=== PATIENT | female | born 1990 | race American Indian/Alaskan Native ===

== ENCOUNTER 2018-10-03 14:41 | Emergency (ER) | payer SELFPAY ==
--- NOTE | 2018-10-03 14:48 | Event Note ---
ED Screening Note Date of service: 10/03/18 Time: 14:46 ED Screening Note: This is a 28 y.o. F. 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 Pain worse with deep breaths. Denies drug use, n/v, or palpitations. This initial assessment/diagnostic orders/clinical plan/treatment(s) is/are subject to change based on patients health status, clinical progression and re- assessment by fellow clinical providers in the ED. Further treatment and workup at subsequent clinical providers discretion. Patient/guardian urged not to elope from the ED as their condition may be serious if not clinically assessed and managed. Initial orders include: EKG and CXR
[2018-10-03 14:49] VITALS: BP 130/79
[2018-10-03] MEDS ORDERED: MOTRIN PO ONE (15:51)
--- NOTE | 2018-10-03 15:52 | Emergency Department Report ---
ED Chest Pain HPI - General Chief Complaint: Chest Pain Stated Complaint: CHEST PAIN Time Seen by Provider: 10/03/18 14:46 Source: patient, EMS Mode of arrival: Ambulatory Limitations: No Limitations - History of Present Illness Initial Comments: Estrellita is a 28 yo female without significant past medical history who presents with chest pain left side radiating to her left shoulder. No shortness of breath. Pain is sharp worse with inspiration. No use of oral contraceptives. No recent travel. Denies leg pain. No history of the VTE in the family. 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 Complaint: chest pain -: Gradual, This morning Onset: during rest Pain Location: left chest Severity: severe Quality: sharp Consistency: constant Worsens With: inspiration - Related Data Previous Rx's Medication Instructions Recorded Last Taken Type Benzocaine/Mentho [Cepacol X 1 each MM Q2H PRN #3 packet 07/17/18 Unknown Rx Strength] Ibuprofen [Ibuprofen 800] 800 mg PO TID PRN #30 tablet 07/17/18 Unknown Rx Allergies Allergy/AdvReac Type Severity Reaction Status Date / Time No Known Allergies Allergy Unverified 07/28/15 06:22 Heart Score - HEART Score History: Slightly suspicious EKG: Normal Age: < 45 Risk factors: 1-2 risk factors Troponin: < normal limit HEART Score: 1 - Critical Actions Critical Actions: 0-3 pts:0.9-1.7%risk of adverse cardiac event.Candidate for discharge ED Review of Systems ROS: Stated complaint: CHEST PAIN Other details as noted in HPI Comment: All other systems reviewed and negative Constitutional: denies: fever, malaise Respiratory: shortness of breath. denies: cough Cardiovascular: chest pain, palpitations ED Past Medical Hx - Past Medical History Previous Medical History?: Yes Hx Hypertension: No Hx Congestive Heart Failure: No Hx Diabetes: No Hx Deep Vein Thrombosis: No Hx Renal Disease: No Hx Sickle Cell Disease: No Hx Seizures: No Hx Asthma: No Hx COPD: No Hx HIV: No - Social History Smoking Status: Never Smoker Substance Use Type: None - Medications Home Medications: Home Medications Medication Instructions Recorded Confirmed Last Taken Type Benzocaine/Mentho [Cepacol X 1 each MM Q2H PRN #3 packet 07/17/18 Unknown Rx Strength] Ibuprofen [Ibuprofen 800] 800 mg PO TID PRN #30 tablet 07/17/18 Unknown Rx ED Physical Exam - General Limitations: No Limitations General appearance: alert, in no apparent distress - Head Head exam: Present: atraumatic, normocephalic - Eye Eye exam: Present: normal appearance - ENT ENT exam: Present: mucous membranes moist - Neck Neck exam: Present: normal inspection, full ROM - Respiratory Respiratory exam: Present: normal lung sounds bilaterally. Absent: respiratory distress, wheezes, rales, rhonchi - Cardiovascular Cardiovascular Exam: Present: regular rate, normal rhythm, normal heart sounds. Absent: systolic murmur, diastolic murmur, rubs, gallop - GI/Abdominal GI/Abdominal exam: Present: soft, normal bowel sounds. Absent: distended, tenderness, guarding, rebound - Extremities Exam Extremities exam: Present: normal inspection - Back Exam Back exam: Present: normal inspection - Neurological Exam Neurological exam: Present: alert, oriented X3 - Psychiatric Psychiatric exam: Present: normal affect, normal mood - Skin Skin exam: Present: warm, dry, intact, normal color. Absent: rash ED Course Vital Signs 10/03/18 14:47 Temperature 98.7 F Pulse Rate 99 H Respiratory 17 Rate Blood Pressure 130/79 O2 Sat by Pulse 98 Oximetry ED Medical Decision Making - EKG Data EKG shows normal: sinus rhythm, axis, intervals, QRS complexes, ST-T waves Rate: normal - Radiology Data Radiology results: report reviewed, image reviewed interpreted by me: Chest x-ray PA and lateral no acute process - Medical Decision Making Estrellita is a healthy 28-year-old female who presents with chest pain pleuritic in nature. PERC Negative for PE. No risk factors for pulmonary embolism. No indication of pneumothorax or pneumonia. Given reassurance and return precautions. Recommended [id number] ibuprofen for possible musculoskeletal pain. Critical care attestation.: If time is entered above; I have spent that time in minutes in the direct care of this critically ill patient, excluding procedure time. ED Disposition Clinical Impression: Chest pain Disposition: -01 TO HOME OR SELFCARE Is pt being admited?: No Does the pt Need Aspirin: No Condition: Stable Instructions: Chest Pain (ED) Referrals: CHI HOLLEY MD [Primary Care Provider] - 3-5 Days
--- NOTE | 2018-10-03 16:18 | XRay Report ---
CHEST 2 VIEWS INDICATION / CLINICAL INFORMATION: Chest Pain. COMPARISON: None available. FINDINGS: SUPPORT DEVICES: None. HEART / MEDIASTINUM: The heart size and pulmonary vasculature are normal. The aorta is normal in linda alireza. LUNGS / PLEURA: No significant pulmonary or pleural abnormality. No pneumothorax. ADDITIONAL FINDINGS: No significant additional findings. IMPRESSION: No acute findings. Signer Name: Nicola Hager MD Signed: 10/03/2018 4:14 PM Workstation Name: [id number]
== END 2018-10-03 16:35 | disposition home or self-care (01) ==
LOC: ED 14:41
DX: R07.89 Other chest pain (principal)
CPT/HCPCS: 71046; 93005; 93010

== ENCOUNTER 2019-01-31 11:15 | Emergency (ER) | payer MEDICAID, OTHER ==
[2019-01-31 11:20] VITALS: BP 118/78
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
[2019-01-31 13:54] LABS: Bilirubin,Urine NEG (Negative); Blood,Urine NEG (Negative); Color,Urine Yellow (Yellow); Mucus,Urine 1+ /HPF; Protein,Urine <15 mg/dL mg/dL (Negative)
[2019-01-31 13:55] LABS: HCG Qualitative,Urine Negative (Negative)
== END 2019-01-31 14:37 | disposition left against medical advice (07) ==
LOC: ED 11:15
DX: R10.30 Lower abdominal pain, unspecified (principal); V47.5XXA Car driver injured in collision with fixed or stationary object in traffic accident, initial encounter; Y93.89 Activity, other specified; Y92.410 Unspecified street and highway as the place of occurrence of the external cause; Y99.8 Other external cause status
CPT/HCPCS: 81001; 81025

== ENCOUNTER 2019-05-02 21:11 | Emergency (ER) | payer MEDICAID ==
--- NOTE | 2019-05-02 22:00 | Event Note ---
ED Screening Note ED Screening Note: pt presents for upper abd pain that began a few weeks ago states that it comes every hour +nausea no vomiting or diarrhea states that she does have hemorrhoids no urinary sx PMHx none no allergies to meds LNMP: first week of apr This initial assessment/diagnostic orders/clinical plan/treatment(s) is/are subject to change based on patients health status, clinical progression and re- assessment by fellow clinical providers in the ED. Further treatment and workup at subsequent clinical providers discretion. Patient/guardian urged not to elope from the ED as their condition may be serious if not clinically assessed and managed. Initial orders include: labs, UA, urine preg
[2019-05-02 22:42] LABS: Basophils % (Auto) 0.5 % (0.0-1.8); Eosinophils # (Auto) 0.2 K/mm3 (0.0-0.4); Hematocrit 34.3 % (30.3-42.9); Hemoglobin 11.5 gm/dl (10.1-14.3); Lymphocytes # (Auto) 1.7 K/mm3 (1.2-5.4); Lymphocytes % (Auto) 21.7 % (13.4-35.0); Mean Corpuscular HGB Conc 34 % (30-34); Mean Corpuscular Volume 93 fl (79-97); Monocytes # (Auto) 0.7 K/mm3 (0.0-0.8); Monocytes % (Auto) 8.9 % (0.0-7.3); Platelet Count 353 K/mm3 (140-440); Red Blood Count 3.68 M/mm3 (3.65-5.03); Red Cell Distribution Width 13.9 % (13.2-15.2)
[2019-05-02 22:58] LABS: Alanine Aminotransferase 10 units/L (7-56); Albumin 4.1 g/dL (3.9-5); BUN/Creatinine Ratio 16; Blood Urea Nitrogen 11 mg/dL (7-17); Hemolysis Index 1
[2019-05-03 00:13] LABS: Bilirubin,Urine NEG (Negative); Blood,Urine NEG (Negative); Color,Urine Yellow (Yellow); Mucus,Urine 3+ /HPF; Protein,Urine <15 mg/dL mg/dL (Negative)
[2019-05-03 00:15] LABS: HCG Qualitative,Urine Negative (Negative)
[2019-05-03] MEDS ORDERED: SUCRALFATE 1 GM/10 ML ORAL LIQD PO ONE (00:30)
[2019-05-03] MEDS ORDERED: ACETAMINOPHEN 325 MG/10.15 ML ORAL LIQD UNIT DOSE PO ONE (00:30)
--- NOTE | 2019-05-03 00:31 | Emergency Department Report ---
ED Abdominal Pain HPI - General Chief Complaint: Abdominal Pain Stated Complaint: GASTRO PROBLEMS/STOMACH PAIN Time Seen by Provider: 05/02/19 21:57 Source: patient, RN notes reviewed Mode of arrival: Ambulatory Limitations: No Limitations - History of Present Illness Initial Comments: During the history and physical examination, I am parts manager and escorted by bus girl Caitlin Kyle Patient is a pleasant 29-year-old female who is not known to myself previously. She presents to the ER with a complaint of intermittent cramping abdominal pain. The pain is epigastric. It decreases when she lays on her right-hand side. It does not radiate anywhere. There is no nausea, vomiting or diarrhea. There were no irritative or obstructive urinary symptoms. Denies headache, neck pain, chest pain, exertional shortness of breath, also endorses nontraumatic paralumbar pain. She has been having this pain over the past few weeks and months. She believes that she might have IBS secondary to looking up her symptoms on the Internet. MD Complaint: abdominal pain -: Gradual Location: epigastric Radiation: other Migration to: other Quality: cramping Consistency: intermittent Improves With: other Worsens With: other - Related Data Previous Rx's Medication Instructions Recorded Last Taken Type Acetaminophen [Non-Aspirin Extra 500 mg PO Q6HR PRN #30 tablet 05/03/19 Unknown Rx Strength] Famotidine [Pepcid] 20 mg PO QDAY #30 tablet 05/03/19 Unknown Rx Allergies Allergy/AdvReac Type Severity Reaction Status Date / Time No Known Allergies Allergy Unverified 07/28/15 06:22 ED Review of Systems ROS: Stated complaint: GASTRO PROBLEMS/STOMACH PAIN Other details as noted in HPI Constitutional: denies: fever Eyes: denies: eye discharge ENT: denies: congestion Respiratory: denies: wheezing Cardiovascular: denies: syncope Gastrointestinal: abdominal pain. denies: vomiting, diarrhea, constipation, hematochezia Genitourinary: denies: dysuria Musculoskeletal: back pain Skin: as per HPI Neurological: as per HPI Psychiatric: anxiety Hematological/Lymphatic: denies: easy bleeding ED Past Medical Hx - Past Medical History Previous Medical History?: No Hx Hypertension: No Hx Congestive Heart Failure: No Hx Diabetes: No Hx Deep Vein Thrombosis: No Hx Renal Disease: No Hx Sickle Cell Disease: No Hx Seizures: No Hx Asthma: No Hx COPD: No Hx HIV: No - Surgical History Past Surgical History?: No - Social History Smoking Status: Never Smoker Substance Use Type: None - Medications Home Medications: Home Medications Medication Instructions Recorded Confirmed Last Taken Type Acetaminophen [Non-Aspirin Extra 500 mg PO Q6HR PRN #30 tablet 05/03/19 Unknown Rx Strength] Famotidine [Pepcid] 20 mg PO QDAY #30 tablet 05/03/19 Unknown Rx ED Physical Exam - General Limitations: No Limitations, Other (Chaperoned by Caitlin Kyle) General appearance: alert, in no apparent distress - Head Head exam: Present: atraumatic, normocephalic - Eye Eye exam: Present: normal appearance, EOMI. Absent: nystagmus - ENT ENT exam: Present: normal exam, normal orophraynx, mucous membranes moist, normal external ear exam - Neck Neck exam: Present: normal inspection, full ROM. Absent: tenderness, meningismus - Respiratory Respiratory exam: Present: normal lung sounds bilaterally. Absent: respiratory distress - Cardiovascular Cardiovascular Exam: Present: regular rate, normal rhythm, normal heart sounds. Absent: bradycardia, tachycardia, irregular rhythm, systolic murmur, diastolic murmur, rubs, gallop - GI/Abdominal GI/Abdominal exam: Present: soft, normal bowel sounds. Absent: distended, tenderness, guarding, rebound, rigid, pulsatile mass - Extremities Exam Extremities exam: Present: normal inspection, full ROM, other (2+ pulses noted in the bilateral upper and lower extremities. There is no palpable cord. negative Homans sign. Muscular compartments are soft. The pelvis is stable.). Absent: pedal edema, calf tenderness - Back Exam Back exam: Present: normal inspection, full ROM. Absent: tenderness, CVA tenderness (R), CVA tenderness (L), paraspinal tenderness, vertebral tenderness - Neurological Exam Neurological exam: Present: alert, normal gait, other (There is no facial droop. The tongue is midline. Extraocular movements are intact bilaterally. There is 5 out of 5 strength in bilateral upper and lower extremities. Sensation is intact to light touch bilateral upper and lower extremities. There is a normal gait.). Absent: motor sensory deficit - Psychiatric Psychiatric exam: Present: anxious - Skin Skin exam: Present: warm, dry, intact, normal color. Absent: rash ED Course Vital Signs 05/02/19 05/03/19 21:14 01:29 Temperature 98.8 F 98.1 F Pulse Rate 103 H 89 Respiratory 18 16 Rate Blood Pressure 125/92 Blood Pressure 115/82 [Right] O2 Sat by Pulse 97 100 Oximetry ED Medical Decision Making - Lab Data Result diagrams: 05/02/19 22:22 05/02/19 22:22 Vital Signs 05/02/19 05/03/19 21:14 01:29 Temperature 98.8 F 98.1 F Pulse Rate 103 H 89 Respiratory 18 16 Rate Blood Pressure 125/92 Blood Pressure 115/82 [Right] O2 Sat by Pulse 97 100 Oximetry Lab Results 05/02/19 05/02/19 05/02/19 Range/Units 22:22 22:22 Unknown WBC 7.6 (4.5-11.0) K/mm3 RBC 3.68 (3.65-5.03) M/mm3 Hgb 11.5 (10.1-14.3) gm/dl Hct 34.3 (30.3-42.9) % MCV 93 (79-97) fl MCH 31 (28-32) pg MCHC 34 (30-34) % RDW 13.9 (13.2-15.2) % Plt Count 353 (140-440) K/mm3 Lymph % (Auto) 21.7 (13.4-35.0) % Cedar % (Auto) 8.9 H (0.0-7.3) % Eos % (Auto) 2.0 (0.0-4.3) % Baso % (Auto) 0.5 (0.0-1.8) % Lymph # 1.7 (1.2-5.4) K/mm3 Cedar # 0.7 (0.0-0.8) K/mm3 Eos # 0.2 (0.0-0.4) K/mm3 Baso # 0.0 (0.0-0.1) K/mm3 Seg Neutrophils % 66.9 (40.0-70.0) % Seg Neutrophils # 5.1 (1.8-7.7) K/mm3 Sodium 138 (137-145) mmol/L Potassium 3.6 (3.6-5.0) mmol/L Chloride 100.5 (98-107) mmol/L Carbon Dioxide 24 (22-30) mmol/L Anion Gap 17 mmol/L BUN 11 (7-17) mg/dL Creatinine 0.7 (0.7-1.2) mg/dL Estimated GFR > 60 ml/min BUN/Creatinine Ratio 16 % Glucose 89 (65-100) mg/dL Calcium 9.0 (8.4-10.2) mg/dL Total Bilirubin 0.50 (0.1-1.2) mg/dL AST 14 (5-40) units/L ALT 10 (7-56) units/L Alkaline Phosphatase 91 (35-129) units/L Total Protein 8.0 (6.3-8.2) g/dL Albumin 4.1 (3.9-5) g/dL Albumin/Globulin Ratio 1.1 % Urine Color Yellow (Yellow) Urine Turbidity Clear (Clear) Urine pH 5.0 (5.0-7.0) Ur Specific [place] 1.030 (1.003-1.030) Urine Protein <15 mg/dl (Negative) mg/dL Urine Glucose (UA) Neg (Negative) mg/dL Urine Ketones Neg (Negative) mg/dL Urine Blood Neg (Negative) Urine Nitrite Neg (Negative) Urine Bilirubin Neg (Negative) Urine Urobilinogen 2.0 (<2.0) mg/dL Ur Leukocyte Esterase Neg (Negative) Urine WBC (Auto) 1.0 (0.0-6.0) /HPF Urine RBC (Auto) 2.0 (0.0-6.0) /HPF U Epithel Cells (Auto) < 1.0 (0-13.0) /HPF Urine Mucus 3+ /HPF Urine HCG, Qual Negative (Negative) - EKG Data -: EKG Interpreted by Pr EKG shows normal: sinus rhythm Rate: normal - EKG Data When compared to previous EKG there are: previous EKG unavailable Interpretation: normal EKG 05/03/19 01:48 There is no prior EKG available for comparison. Sinus rhythm at, tachycardia, high left ventricular voltage, incomplete right bundle branch block, question juvenile T wave inversion V3, no endorsement of chest pain, the EKG is abnormal, it is not consistent with ST elevation myocardial infarction. - Medical Decision Making Differential diagnosis, including but not limited to: GERD, gastritis, hiatal hernia, constipation, functional abdominal pain, IBS Assessment and plan: 29-year-old female with weeks and months of intermittent crampy abdominal pain. She is afebrile with reassuring vital signs. Her abdominal exam is benign, without rebound, guarding or peritoneal signs. Her tachycardia has resolved, she is tolerating liquid feeds without difficulty, her screening laboratory studies have not indicated any emergent condition at this time, and she appears to be quite engaged on her cellular phone, and she is not in any acute distress. This patient does not appear to have an emergent medical condition at this time. She can be started on as needed Tylenol, famotidine, we will discussed diet lifestyle modifications, she can follow-up with an outpatient primary care doctor and/or line painting machine operator. Return precautions are reviewed. There is no abdominal tenderness, nausea or vomiting, therefore, pancreatitis is very unlikely. Critical care attestation.: If time is entered above; I have spent that time in minutes in the direct care of this critically ill patient, excluding procedure time. ED Disposition Clinical Impression: Abdominal pain Disposition: DC-01 TO HOME OR SELFCARE Is pt being admited?: No Does the pt Need Aspirin: No Condition: Stable Additional Instructions: Avoid consumption of Motrin, ibuprofen, Naprosyn, Aleve, alcohol, heavy and/or spicy foods. Avoid consumption and secondhand exposure to smoke products, including marijuana, and tobacco. Take the pain medications as needed and/or directed, make certain to eat plenty of fiber, vegetables, lean protein, and drink at least 6 cups of water per 24 hours. Follow-up with the primary care doctor or line painting machine operator for abdominal pain within the next 2 to 4 weeks. Follow-up with an outpatient digging machine operator for reproductive health needs and health maintenance within the next 6 to 8 weeks. Return to the emergency room right away with new, worsened or different symptoms, or symptoms not present on the initial emergency room evaluation. Referrals: [facility] [Provider Group] - as needed [facility] [Provider Group] - as needed [facility] [Provider Group] - as needed [facility] [Provider Group] - as needed [facility] [Provider Group[facility] - as needed [facility] [Provider Group] - as needed
[2019-05-03 01:30] VITALS: BP 115/82
== END 2019-05-03 02:11 | disposition home or self-care (01) ==
LOC: ED 21:11
DX: R10.13 Epigastric pain (principal); Z79.899 Other long term (current) drug therapy
CPT/HCPCS: 36415; 80053; 81001; 81025; 85025; 93005; 93010

== ENCOUNTER 2019-06-16 19:00 | Emergency (ER) | payer MEDICAID ==
[2019-06-16 20:07] LABS: Basophils % (Auto) 0.2 % (0.0-1.8); Eosinophils # (Auto) 0.3 K/mm3 (0.0-0.4); Eosinophils % (Auto) 2.4 % (0.0-4.3); Hematocrit 31.5 % (30.3-42.9); Hemoglobin 10.3 gm/dl (10.1-14.3); Lymphocytes # (Auto) 1.2 K/mm3 (1.2-5.4); Lymphocytes % (Auto) 11.9 % (13.4-35.0); Mean Corpuscular HGB Conc 33 % (30-34); Mean Corpuscular Volume 95 fl (79-97); Monocytes % (Auto) 9.7 % (0.0-7.3); Platelet Count 469 K/mm3 (140-440); Red Blood Count 3.32 M/mm3 (3.65-5.03); Red Cell Distribution Width 15.2 % (13.2-15.2)
[2019-06-16 20:25] LABS: Alanine Aminotransferase 7 units/L (7-56); Albumin 3.9 g/dL (3.9-5); BUN/Creatinine Ratio 11; Blood Urea Nitrogen 8 mg/dL (7-17); Calcium 8.9 mg/dL (8.4-10.2); Hemolysis Index 3
[2019-06-16 21:12] VITALS: BP 118/78
--- NOTE | 2019-06-16 21:13 | Emergency Department Report ---
HPI - General Chief Complaint: GI Bleed Time Seen by Provider: 06/16/19 20:44 - HPI HPI: 29-year-old -Malaysian female presents to the emergency department with complaint of a 3-day history of rectal bleeding with bright red blood. Overall she says that this has been going on for the past year, but sometimes it will go away for extended periods of time. The patient also complains of some intermittent mid abdominal pains. She denies any fever, diarrhea, constipation, dysuria, vaginal bleeding, vaginal discharge. She has seen a textile technical officer through [facility] about 1 year ago and was just told that it was due to hemorrhoids. Otherwise no past medical history. No recent travel or sick contacts at home. ED Past Medical Hx - Past Medical History Hx Hypertension: No Hx Congestive Heart Failure: No Hx Diabetes: No Hx Deep Vein Thrombosis: No Hx Renal Disease: No Hx Sickle Cell Disease: No Hx Seizures: No Hx Asthma: No Hx COPD: No Hx HIV: No - Surgical History Past Surgical History?: No - Social History Smoking Status: Never Smoker Substance Use Type: None - Medications Home Medications: Home Medications Medication Instructions Recorded Confirmed Last Taken Type Acetaminophen [Non-Aspirin Extra 500 mg PO Q6HR PRN #30 tablet 05/03/19 Unknown Rx Strength] Famotidine [Pepcid] 20 mg PO QDAY #30 tablet 05/03/19 Unknown Rx Hydrocortisone [Anusol-Hc 2.5% TOP 1 applicatio RC BID #1 tube 06/16/19 Unknown Rx CREAM] ED Review of Systems ROS: Stated complaint: GI BLEED Other details as noted in HPI Comment: All other systems reviewed and negative Constitutional: denies: chills, fever Eyes: denies: eye pain, vision change ENT: denies: ear pain, throat pain Respiratory: denies: cough, shortness of breath Cardiovascular: denies: chest pain, palpitations Gastrointestinal: abdominal pain, hematochezia. denies: nausea, vomiting Genitourinary: denies: dysuria, discharge Musculoskeletal: denies: back pain, arthralgia Skin: denies: rash, lesions Neurological: denies: headache, weakness Physical Exam - Physical Exam Vital Signs: Vital Signs 06/16/19 19:05 Temperature 99.3 F Respiratory 20 Rate Blood Pressure 116/79 O2 Sat by Pulse 100 Oximetry Physical Exam: GENERAL: The patient is well-developed well-nourished. HENT: Normocephalic. Atraumatic. Patient has moist mucous membranes. EYES: Extraocular motions are intact. NECK: Supple. Trachea is midline. CHEST/LUNGS: Clear to auscultation. There is no respiratory distress noted. HEART/CARDIOVASCULAR: Regular. There is no tachycardia. ABDOMEN: Abdomen is soft. Mild epigastric and left upper quadrant abdominal tenderness to palpation. No guarding. Patient has normal bowel sounds. There is no abdominal distention. SKIN: Skin is warm and dry. NEURO: The patient is awake, alert, and oriented. The patient is cooperative. The patient has no focal neurologic deficits. Normal speech. MUSCULOSKELETAL: There is no tenderness or deformity. There is no evidence of acute injury. RECTAL: There is a moderate sized nonthrombosed external hemorrhoid at the 6 o'clock position. No gross blood. ED Course Vital Signs 06/16/19 19:05 Temperature 99.3 F Respiratory 20 Rate Blood Pressure 116/79 O2 Sat by Pulse 100 Oximetry ED Medical Decision Making - Lab Data Result diagrams: 06/16/19 19:31 06/16/19 19:31 - Radiology Data Radiology results: report reviewed, image reviewed interpreted by me: Abdominal x-ray shows nonspecific nonobstructive bowel gas ULTRASOUND ABDOMEN, LIMITED (RIGHT UPPER QUADRANT) INDICATION: Abd pain. COMPAR LIEN: None available. FINDINGS: PANCREAS: Visualized portion shows no significant abnormality. LIVER: 18.6 cm in length with a normal echo pattern compared to the right renal cortex. No focal lesion and normal directional blood flow in the main portal vein. GALLBLADDER: Mildly contracted without wall thickening or gallstones. BILE DUCTS: No significant abnormality. Common bile duct measures 1 mm. FREE FLUID: None. ADDITIONAL FINDINGS: None. IMPRESSION: No significant sonographic abnormality of the right upper quadrant. - Medical Decision Making Rectal examination was done with MAGGY Duran at bedside as a bilingual operator This patient presents to the emergency department with a complaint of a 3-day history of some rectal bleeding with bright red blood. Overall the patient says that this is been going on for the past year. She has seen a textile technical officer in the past but never had a colonoscopy and has been told it is due to hemorrhoids. A rectal examination was done that does show a nonthrombosed external hemorrhoid at the 6 o'clock position. No gross blood visualized. Patient's labs are mostly unremarkable. Hemoglobin was at 10.3. Normal metabolic panel, urinalysis, and the patient is not . She also has complaints of intermittent abdominal pain. Abdomen is soft, nondistended and nontoxic in appearance. Abdominal x-ray shows nonspecific nonobstructive bowel gas. Ultrasound of the upper abdomen did not show any acute process. The patient appears safe for discharge home at this time. She will be given a referral for [place] [facility] and has been placed on Anusol for the external hemorrhoid. The patient will return to the emergency department with any worsening of her symptoms or any acute distress. Critical Care Time: No Critical care attestation.: If time is entered above; I have spent that time in minutes in the direct care of this critically ill patient, excluding procedure time. ED Disposition Clinical Impression: Rectal bleeding, External hemorrhoid, Intermittent abdominal pain Disposition: TO HOME OR SELFCARE Is pt being admited?: No Condition: Stable Instructions: Hemorrhoids (ED), Rectal Bleeding (ED), Abdominal Pain (ED) Additional Instructions: Please follow-up with your primary care physician in the next few days. I am giving you a referral for a local gastroenterology group to follow-up regarding the rectal bleeding and hemorrhoids, and your intermittent abdominal pains. Return to the emergency department with any worsening of your symptoms or any a cute distress. Prescriptions: Hydrocortisone [Anusol-Hc 2.5% TOP CREAM] 1 applicatio RC BID #1 tube Referrals: [facility] [Provider Group] - 3-5 Days Forms: Accompanied Note Time of Disposition: 23:43
--- NOTE | 2019-06-16 22:25 | Ultrasound Report ---
ULTRASOUND ABDOMEN, LIMITED (RIGHT UPPER QUADRANT) INDICATION: Abd pain. COMPARISON: None available. FINDINGS: PANCREAS: Visualized portion shows no significant abnormality. LIVER: 18.6 cm in length with a normal echo pattern compared to the right renal cortex. No focal lesi on and normal directional blood flow in the main portal vein. GALLBLADDER: Mildly contracted without wall thickening or gallstones. BILE DUCTS: No significant abnormality. Common bile duct measures 1 mm. FREE FLUID: None. ADDITIONAL FINDINGS: None. IMPRESSION: No significant sonographic abnormality of the right upper quadrant. Signer Name: Nicola Hager MD Signed: 06/16/2019 10:21 PM Workstation Name: [id number]
[2019-06-16 23:10] LABS: Bacteria,Urine 1+ /HPF (Negative); Bilirubin,Urine NEG (Negative); Blood,Urine NEG (Negative); Color,Urine Amber (Yellow); Mucus,Urine 3+ /HPF
[2019-06-16 23:11] LABS: HCG Qualitative,Urine Negative (Negative)
--- NOTE | 2019-06-16 23:45 | XRay Report ---
ABDOMEN, 2 VIEWS 06/16/2019 INDICATION / CLINICAL INFORMATION: Abd pain. COMPARISON: None available. FINDINGS: Normal bowel gas pattern. No evidence of pneumoperitoneum. No calcifications project over the urinary system. Lumbar scoliosis. IMPRESSION: No acute findings. Signer Name: Cyril Méndez MD Signed: 06/16/2019 11:41 PM Workstation Name: [id number]
== END 2019-06-16 23:45 | disposition home or self-care (01) ==
LOC: ED 19:00
DX: K62.5 Hemorrhage of anus and rectum (principal); K64.4 Residual hemorrhoidal skin tags; R10.9 Unspecified abdominal pain; Z79.899 Other long term (current) drug therapy
CPT/HCPCS: 36415; 74019; 76705; 80053; 81001; 81025; 85025; 86850; 86900; 86901

== ENCOUNTER 2019-08-03 20:08 | Inpatient (IN) | payer MEDICAID ==
[2019-08-03] MEDS ORDERED: ONDANSETRON 4 MG/2 ML INJ IV ONE (20:19)
[2019-08-03] MEDS ORDERED: fentaNYL 100 MCG/2 ML INJ IV ONE ×2 (20:19→20:59)
[2019-08-03] MEDS ORDERED: methylPREDNISolone Sod Succinate 125 MG/2 ML INJ IV ONE (20:20)
[2019-08-03] MEDS ORDERED: SODIUM CHLORIDE 0.9% 1000 ML 1,000 ML IV ONE (20:21)
--- NOTE | 2019-08-03 20:26 | Emergency Department Report ---
HPI - General Chief Complaint: Abdominal Pain PUI?: No Time Seen by Provider: 08/03/19 20:16 - HPI HPI: Room 4 The patient is a 29-year-old female present with a chief complaint of abdominal pain and hematochezia. Patient has history of Crohn's disease and states this morning she developed bloody stool and diffuse abdominal pain. Patient is to nausea and vomiting. Patient denies history of fever or dysuria. Patient gives her pain a score of 10/10. Patient states the pain radiates to her back ED Past Medical Hx - Past Medical History Previous Medical History?: Yes Additional medical history: Crohn's disease, anemia - Surgical History Past Surgical History?: No - Family History Family history: no significant - Social History Smoking Status: Never Smoker Substance Use Type: None (Denies illicit drug use) - Medications Home Medications: Home Medications Medication Instructions Recorded Confirmed Last Taken Type Acetaminophen [Non-Aspirin Extra 500 mg PO Q6HR PRN #30 tablet 05/03/19 Unknown Rx Strength] Famotidine [Pepcid] 20 mg PO QDAY #30 tablet 05/03/19 Unknown Rx Hydrocortisone [Anusol-Hc 2.5% TOP 1 applicatio RC BID #1 tube 06/16/19 Unknown Rx CREAM] ED Review of Systems ROS: Stated complaint: BLODDY STOOL Other details as noted in HPI Constitutional: denies: fever Eyes: denies: eye pain ENT: denies: throat pain Respiratory: no symptoms reported Cardiovascular: denies: chest pain Endocrine: no symptoms reported Gastrointestinal: abdominal pain, nausea, vomiting, hematochezia Genitourinary: denies: dysuria Musculoskeletal: back pain Neurological: denies: headache Physical Exam - Physical Exam Physical Exam: GENERAL: The patient is well-developed well-nourished female lying on stretcher holding emesis bag appearing to be in moderate discomfort HEENT: Normocephalic. Atraumatic. Extraocular motions are intact. Patient has moist mucous membranes. NECK: Supple. Trachea midline CHEST/LUNGS: Clear to auscultation. There is no respiratory distress noted. HEART/CARDIOVASCULAR: Regular. There is no tachycardia. There is no gallop rub or murmur. ABDOMEN: Abdomen is soft, with diffuse discomfort to palpation. Patient has normal bowel sounds. There is no abdominal distention. SKIN: There is no rash. There is no edema. There is no diaphoresis. NEURO: The patient is awake, alert, and oriented. The patient is cooperative. The patient has normal speech MUSCULOSKELETAL: There is no evidence of acute injury. ED Medical Decision Making - Lab Data Result diagrams: 08/03/19 20:36 08/03/19 20:36 Laboratory Tests 08/03/19 08/03/19 08/03/19 20:36 20:36 20:36 WBC 12.1 H RBC 3.06 L Hgb 8.7 L Hct 26.7 L MCV 87 MCH 29 MCHC 33 RDW 16.9 H Plt Count 652 H Lymph % (Auto) [facility] [place] % (Auto) [facility] Eos % (Auto) [facility] Baso % (Auto) [facility] Lymph # [facility] [place] # [facility] Eos # [facility] Baso # [facility] Seg Neutrophils % [facility] Seg Neutrophils # [facility] PT 15.1 H INR 1.21 H APTT 27.5 Sodium 138 Potassium 3.0 L Chloride 98.9 Carbon Dioxide 23 Anion Gap 19 BUN 8 Creatinine 0.4 L Estimated GFR > 60 BUN/Creatinine Ratio 20 Glucose 115 H Calcium 8.0 L Total Bilirubin 0.30 AST 15 ALT 13 Alkaline Phosphatase 52 Total Protein 6.6 Albumin 2.6 L Albumin/Globulin Ratio 0.7 Lipase 532 H HCG, Qual Blood Type Antibody Screen 08/03/19 08/03/19 20:36 20:36 WBC RBC Hgb Hct MCV MCH MCHC RDW Plt Count Lymph % (Auto) [place] % (Auto) Eos % (Auto) Baso % (Auto) Lymph # [place] # Eos # Baso # Seg Neutrophils % Seg Neutrophils # PT INR APTT Sodium Potassium Chloride Carbon Dioxide Anion Gap BUN Creatinine Estimated GFR BUN/Creatinine Ratio Glucose Calcium Total Bilirubin AST ALT Alkaline Phosphatase Total Protein Albumin Albumin/Globulin Ratio Lipase HCG, Qual Negative Blood Type O POSITIVE Antibody Screen Negative - Radiology Data Radiology results: report reviewed (CT abdomen pelvis), image reviewed (CT abdomen pelvis) [facility] [address] [place] [address] Cat Scan Report Signed Patient: JARVIS CUEVAS MR#: [id number] : 1990 Acct:[id number] Age/Sex: 29 / F ADM Date: 08/03/19 Loc: ED Attending Dr: Ordering Physician: WENDI MCGILL MD Date of Service: 08/03/19 Procedure(s): CT abdomen pelvis w con Accession Number(s): [id number] cc: WENDI MCGILL MD CT ABDOMEN AND PELVIS WITH IV CONTRAST INDICATION: Generalized abdominal pain. History of Crohn's disease. TECHNIQUE: Following the administration of intravenous contrast, multiple axial CT images of the abdomen and pelvis were acquired. Sagittal and coronal reformats were obtained. All CT performed at this facility utilize dose reduction techniques including automated exposure control, iterative reconstruction and weight based dosing when appropriate to reduce patient radiation dose to as low as reasonably achievable. COMPARISON: None FINDINGS: Limited imaging of the upper abdomen shows no evidence of acute abnormality. Abdomen: There is a moderate amount of free fluid throughout the upper abdomen which appears centered surrounding the pancreas. The duodenal sweep appears mildly hyperenhancing. The liver, gallbladder, spleen, bilateral adrenal glands and bilateral kidneys show no evidence of acute abnormality. The abdominal aorta is normal in caliber. There is no evidence of bowel obstruction the appendix is not clearly identified, although no pericecal inflammatory changes are noted. Pelvis: There is a very trace amount of free pelvic fluid. The uterus and urinary bladder appear within normal limits. Bones and Soft Tissues: Evaluation of bony structures demonstrates no evidence of acute bony abnormality. Evaluation of soft tissue structures demonstrates no acute soft tissue abnormality. IMPRESSION: 1. Moderate amount of free fluid throughout the upper abdomen which appears centered around the pancreas. Findings are suggestive of acute pancreatitis. Please correlate with patient's clinical presentation and pancreatic enzymes. 2. Mild hyperenhancement of the duodenum which may be secondary to reactive change and represent duodenitis Signer Name: Candi Marie MD Signed: 08/03/2019 11:41 PM Workstation Name: [id number] Transcribed By: EB Dictated By: Candi Marie MD Electronically Authenticated By: Candi Marie MD Signed Date/Time: 08/03/19 2341 DD/ [id number] TD/TT: - Differential Diagnosis Crohn's flare, GI bleed Critical care attestation.: If time is entered above; I have spent that time in minutes in the direct care of this critically ill patient, excluding procedure time. ED Disposition Clinical Impression: Acute abdominal pain, Acute pancreatitis Disposition: OP ADMIT IP TO THIS HOSP Is pt being admited?: Yes Does the pt Need Aspirin: No Condition: Fair Instructions: Abdominal Pain (ED) Referrals: PRIMARY CARE, [Primary Care Provider] - 3-5 Days Time of Disposition: 23:53 (Hospitalist paged (Dr Robertson))
[2019-08-03 20:56] LABS: Hematocrit 26.7 % (30.3-42.9); Hemoglobin 8.7 gm/dl (10.1-14.3); Mean Corpuscular HGB Conc 33 % (30-34); Mean Corpuscular Volume 87 fl (79-97); Platelet Count 652 K/mm3 (140-440); Red Blood Count 3.06 M/mm3 (3.65-5.03); Red Cell Distribution Width 16.9 % (13.2-15.2)
[2019-08-03 20:59] LABS: INR 1.21 (0.87-1.13)
[2019-08-03 21:00] LABS: Partial Thromboplastin Time 27.5 Sec. (24.2-36.6)
[2019-08-03] MEDS ORDERED: diphenhydrAMINE 50 MG/ML VIAL IV ONE (21:00)
[2019-08-03 21:11] LABS: Alanine Aminotransferase 13 units/L (7-56); Albumin 2.6 g/dL (3.9-5); BUN/Creatinine Ratio 20; Blood Urea Nitrogen 8 mg/dL (7-17); Hemolysis Index 10
[2019-08-03] MEDS ORDERED: HYDROmorphone 1 MG/1 ML INJ IV ONE (22:12)
[2019-08-03] MEDS: POTASSIUM CHLORIDE 10 MEQ 10 MEQ/100 ML BAG IV SCH (22:27)
--- NOTE | 2019-08-03 23:46 | Cat Scan Report ---
CT ABDOMEN AND PELVIS WITH IV CONTRAST INDICATION: Generalized abdominal pain. History of Crohn's disease. TECHNIQUE: Following the administration of intravenous contrast, multiple axial CT images of the abdo men and pelvis were acquired. Sagittal and coronal reformats were obtained. All CT performed at this facility utilize dose reduction techniques including automated exposure control, iterative reconstru ction and weight based dosing when appropriate to reduce patient radiation dose to as low as reasonab ly achievable. COMPARISON: None FINDINGS: Limited imaging of the upper abdomen shows no evidence of acute abnormality. Abdomen: There is a moderate amount of free fluid throughout the upper abdomen which appears centered surrounding the pancreas. The duodenal sweep appears mildly hyperenhancing. The liver, gallbladder, spleen, bilateral adrenal glands and bilateral kidneys show no evidence of acute abnormality. The abd ominal aorta is normal in caliber. There is no evidence of bowel obstruction the appendix is not hiren rly identified, although no pericecal inflammatory changes are noted. Pelvis: There is a very trace amount of free pelvic fluid. The uterus and urinary bladder appear with in normal limits. Bones and Soft Tissues: Evaluation of bony structures demonstrates no evidence of acute bony abnormal ity. Evaluation of soft tissue structures demonstrates no acute soft tissue abnormality. IMPRESSION: 1. Moderate amount of free fluid throughout the upper abdomen which appears centered around the pancr eas. Findings are suggestive of acute pancreatitis. Please correlate with patient's clinical presenta tion and pancreatic enzymes. 2. Mild hyperenhancement of the duodenum which may be secondary to reactive change and represent duod enitis Signer Name: Candi Marie MD Signed: 08/03/2019 11:41 PM Workstation Name: [id number]
--- NOTE | 2019-08-04 00:47 | History and Physical Report ---
History of Present Illness Date of examination: 08/04/19 Date of admission: 08/04/2019 Chief complaint: Abdominal pain Bloody stool History of present illness: 29-year-old female with known history of Crohn's disease and anemia presenting to the emergency room today complaining of abdominal pain. She also appears to be having some hematochezia. Abdominal pain is said to be generalized and has been ongoing since this morning. She denies any fever or chills, no dysuria or hematuria, she had some nausea and vomiting which has since subsided. There is no known relieving or exacerbating factor for the abdominal pain. Patient denies any sick contacts and no recent travel. Work-up in the emergency room reveals pancreatitis on CT abdomen and pelvis, she also had hypokalemia on the labs. Past History Past Medical History: anemia (History of recent blood transfusion), other (History of Crohn's disease) Past Surgical History: No surgical history Social history: no significant social history Family history: no significant family history Medications and Allergies Allergies Allergy/AdvReac Type Severity Reaction Status Date / Time No Known Allergies Allergy Unverified 07/28/15 06:22 Home Medications Medication Instructions Recorded Confirmed Last Taken Type Iron 65 mg PO BID 08/04/19 08/04/19 08/03/19 08:00 History predniSONE 5 mg (6-Day Pack, 21 10 mg PO TITRATE 08/04/19 08/04/19 08/03/19 20:00 History Tabs) Active Meds: Active Medications Potassium Chloride (Kcl 10meq/100ml) 10 meq in 100 mls @ 100 mls/hr IV Q1H ABHI Stop: 08/04/19 01:59 Last Admin: 08/03/19 22:27 Dose: 100 mls/hr Documented by: Sodium Chloride (Nacl 0.9% 1000 Ml) 1,000 mls @ 150 mls/hr IV DIRECT ABHI Morphine Sulfate (Morphine) 2 mg IV Q4H PRN PRN Reason: Pain, Moderate (4-6) Ondansetron HCl (Zofran) 4 mg IV Q8H PRN PRN Reason: Nausea And Vomiting Sodium Chloride (Sodium Chloride Flush Syringe 10 Ml) 10 ml IV BID ABHI Sodium Chloride (Sodium Chloride Flush Syringe 10 Ml) 10 ml IV PRN PRN PRN Reason: LINE FLUSH Review of Systems Constitutional: no fever, no chills Cardiovascular: no chest pain, no palpitations Respiratory: no cough, no shortness of breath Gastrointestinal: abdominal pain, nausea, vomiting, hematochezia, no hematemesis Genitourinary Female: no flank pain, no dysuria, no hematuria Musculoskeletal: no neck pain, no low back pain Integumentary: no rash, no pruritis Neurological: no headaches, no confusion Psychiatric: no anxiety, no depression Exam - Constitutional Vitals: Temp Pulse Resp BP Pulse Ox 98.3 F 91 H 18 126/89 99 08/03/19 20:10 08/03/19 20:10 08/03/19 20:10 08/03/19 20:10 08/03/19 20:10 General appearance: Present: no acute distress, well-nourished - EENT Eyes: Present: PERRL, EOM intact ENT: hearing intact, clear oral mucosa, dentition normal - Neck Neck: Present: supple, normal ROM - Respiratory Respiratory effort: normal Respiratory: bilateral: CTA - Cardiovascular Rhythm: regular Heart Sounds: Present: S1 & S2 - Extremities Extremities: no ischemia, pulses intact, pulses symmetrical, No edema, Full ROM Peripheral Pulses: within normal limits - Abdominal General gastrointestinal: Present: soft, tender (Tenderness in the epigastric and left upper quadrant region), non-distended, normal bowel sounds - Integumentary Integumentary: Present: clear, warm, dry - Musculoskeletal Musculoskeletal: strength equal bilaterally - Psychiatric Psychiatric: appropriate mood/affect, intact judgment & insight, cooperative - Neurologic Neurologic: CNII-XII intact, moves all extremities Results - Labs CBC & Chem 7: 08/03/19 20:36 08/03/19 20:36 Labs: Abnormal lab results 08/03/19 08/03/19 08/03/19 Range/Units 20:36 20:36 20:36 WBC 12.1 H (4.5-11.0) K/mm3 RBC 3.06 L (3.65-5.03) M/mm3 Hgb 8.7 L (10.1-14.3) gm/dl Hct 26.7 L (30.3-42.9) % RDW 16.9 H (13.2-15.2) % Plt Count 652 H (140-440) K/mm3 PT 15.1 H (12.2-14.9) Sec. INR 1.21 H (0.87-1.13) Potassium 3.0 L (3.6-5.0) mmol/L Creatinine 0.4 L (0.7-1.2) mg/dL Glucose 115 H (65-100) mg/dL Calcium 8.0 L (8.4-10.2) mg/dL Albumin 2.6 L (3.9-5) g/dL Lipase 532 H (13-60) units/L Assessment and Plan - Patient Problems (1) Acute pancreatitis Current Visit: Yes Status: Acute Plan to address problem: Patient admitted to medical floor and placed on IV fluid and analgesic medication. We will keep n.p.o. (2) History of Crohn's disease Current Visit: Yes Status: Acute Plan to address problem: Patient follows up with her private special tax auditor. We will place a consult consult to gastroenterology for evaluation during this admission. (3) Acute abdominal pain Current Visit: Yes Status: Acute Plan to address problem: Possibly secondary to acute pancreatitis. Will continue on IV analgesic medication. (4) Hypokalemia Current Visit: Yes Status: Acute Plan to address problem: Potassium will be repleted and will monitor chemistry. (5) DVT prophylaxis Current Visit: Yes Status: Acute Plan to address problem: Patient placed on sequential compression device.. (6) Full code status Current Visit: Yes Status: Acute
[2019-08-04] MEDS: MORPHINE 2 MG/1 ML INJ IV PRN ×4 (04:13→20:46)
[2019-08-04] MEDS: SODIUM CHLORIDE 0.9% 1000 ML 1,000 ML IV SCH ×2 (04:38→12:01)
[2019-08-04] MEDS: POTASSIUM CHLORIDE 10 MEQ 10 MEQ/100 ML BAG IV SCH ×3 (04:38→08:16)
[2019-08-04] MEDS ORDERED: HEPARIN 5,000 UNIT/1 ML VIAL SUB-Q SCH (06:00)
[2019-08-04 10:11] LABS: Bilirubin,Urine NEG (Negative); Blood,Urine NEG (Negative); Color,Urine Yellow (Yellow); Mucus,Urine FEW /HPF; Protein,Urine <15 mg/dL mg/dL (Negative); Urobilinogen,Urine < 2.0 mg/dL (<2.0)
[2019-08-04] MEDS: D5W/0.9% NACL 1,000 ML IV SCH (17:40)
[2019-08-04] MEDS ORDERED: POTASSIUM CHLORIDE 10 MEQ 10 MEQ/100 ML BAG IV SCH (18:00)
[2019-08-04] MEDS ORDERED: MORPHINE 4 MG/1 ML INJ IV SCH (20:25)
[2019-08-04] MEDS ORDERED: MORPHINE 4 MG/1 ML INJ IV PRN (20:33)
--- NOTE | 2019-08-04 21:30 | Gastroenterology Consultation ---
History of Present Illness - Reason for Consult Consult date: 08/04/19 Pancreatitis Requesting physician: NORMA MILLER - History of Present Illness The patient is a 29 yo female recently dx with ASCA (+) Crohns colitis. She has been approved for Humira, but has been on prednisone therapy for acute control, for the last 10 days. She came to the ER for worsening abdominal pain in the last 48 hours with N/V (now improved). She had labs and a CT that was suggestiv e of pancreatitis (acute, interstitial, without necrosis). She has no hx of EtOH or pancreatitis, and had no gallstones. There is no family hx of pancreatitis. Other than the prednisone, she was on no new medications. She has not had fevers or chills since admit. Past History Past Medical History: anemia (History of recent blood transfusion), other (Croh n's Colitis (new dx, ASCA (+))) Past Surgical History: No surgical history Social history: no significant social history. denies: smoking, alcohol abuse Family history: no significant family history Medications and Allergies Allergies Allergy/AdvReac Type Severity Reaction Status Date / Time No Known Allergies Allergy Unverified 07/28/15 06:22 Home Medications Medication Instructions Recorded Confirmed Last Taken Type Iron 65 mg PO BID 08/04/19 08/04/19 08/03/19 08:00 History predniSONE 5 mg (6-Day Pack, 21 10 mg PO TITRATE 08/04/19 08/04/19 08/03/19 20:00 History Tabs) Active Meds: Active Medications Dextrose/Sodium Chloride (D5ns) 1,000 mls @ 75 mls/hr IV DIRECT [facility] Last Admin: 08/04/19 17:40 Dose: 75 mls/hr Documented by: Morphine Sulfate (Morphine) 2 mg IV Q3H PRN PRN Reason: Pain>3 Last Admin: 08/04/19 20:46 Dose: 2 mg Documented by: Ondansetron HCl (Zofran) 4 mg IV Q8H PRN PRN Reason: Nausea And Vomiting Sodium Chloride (Sodium Chloride Flush Syringe 10 Ml) 10 ml IV BID [facility] Last Admin: 08/04/19 21:05 Dose: Not Given Documented by: Sodium Chloride (Sodium Chloride Flush Syringe 10 Ml) 10 ml IV PRN PRN PRN Reason: LINE FLUSH I HAVE REVIEWED AND RECONCILED MEDICATONS Review of Systems - Review of Systems All systems: negative (as noted in the HPI) Exam - Constitutional Vital Signs: Temp Pulse Resp BP Pulse Ox 98.8 F 92 H 19 121/79 100 08/04/19 17:06 08/04/19 17:06 08/04/19 17:06 08/04/19 17:06 08/04/19 17:06 General appearance: no acute distress - EENT Eyes: PERRL, EOM intact ENT: hearing intact, clear oral mucosa - Neck Neck: supple, normal ROM - Respiratory Respiratory effort: normal Respiratory: bilateral: CTA - Cardiovascular Rhythm: regular Heart Sounds: Present: S1 & S2 Extremities: no ischemia, No edema - Gastrointestinal General gastrointestinal: Present: soft, tender (Mild without guard), distended (Minimal distention) - Integumentary Integumentary: Present: clear, warm, dry - Neurologic Neurological: alert and oriented x3 - Labs CBC & Chem 7: 08/03/19 20:36 08/03/19 20:36 Lab Results: Laboratory Results - last 24 hr 08/03/19 08/03/19 20:36 Unknown Urine Color Yellow Urine Turbidity Clear Urine pH 5.0 Ur Specific [place] 1.046 H Urine Protein <15 mg/dl Urine Glucose (UA) Neg Urine Ketones Neg Urine Blood Neg Urine Nitrite Neg Urine Bilirubin Neg Urine Urobilinogen < 2.0 Ur Leukocyte Esterase Neg Urine WBC (Auto) 10.0 H Urine RBC (Auto) 3.0 U Epithel Cells (Auto) 2.0 Urine Mucus Few Antibody Screen Negative Assessment and Plan - Patient Problems (1) Crohn's colitis Current Visit: Yes Status: Acute Plan to address problem: - New dx, and only treatment is prednisone so far. - Severe anemia, and patient rec'd 2 units PRBC for bleeding 4 days ago. - Will give IV abx rather than steroids in attempt to control. (2) Acute pancreatitis Current Visit: Yes Status: Acute Plan to address problem: - No typical risk factors, but can be a side effect of prednisone. - Will stop prednisone, and use ciprofloxacin to attempt Crohns control until patient able to obtain Humira. - OK to advance to full liquid diet and observe.
[2019-08-04] MEDS: levoFLOXacin 500 MG TAB PO SCH (22:37)
[2019-08-05] MEDS: MORPHINE 2 MG/1 ML INJ IV PRN ×5 (01:28→22:05)
[2019-08-05] MEDS: ONDANSETRON 4 MG/2 ML INJ IV PRN ×3 (01:32→20:24)
[2019-08-05 05:58] LABS: Hematocrit 25.7 % (30.3-42.9); Hemoglobin 8.2 gm/dl (10.1-14.3); Mean Corpuscular HGB Conc 32 % (30-34); Mean Corpuscular Volume 88 fl (79-97); Platelet Count 528 K/mm3 (140-440); Red Blood Count 2.91 M/mm3 (3.65-5.03); Red Cell Distribution Width 16.7 % (13.2-15.2)
[2019-08-05] MEDS: D5W/0.9% NACL 1,000 ML IV SCH ×2 (06:03→20:19)
[2019-08-05 06:06] LABS: INR 1.28 (0.87-1.13)
[2019-08-05 06:12] LABS: BUN/Creatinine Ratio 30; Blood Urea Nitrogen 9 mg/dL (7-17); Calcium 7.8 mg/dL (8.4-10.2); Hemolysis Index 2
[2019-08-05] MEDS: POTASSIUM CHLORIDE 10 MEQ 10 MEQ/100 ML BAG IV SCH ×5 (06:59→23:20)
--- NOTE | 2019-08-05 09:02 | Event Note ---
Date: 08/04/19 Patient seen and evaluated Still in severe pain Cont NPO Cont pain management Dx Acute pancreatitis
[2019-08-05 11:01] LABS: Anisocytosis 1+; Band Neutrophils # (Manual) 0.6 K/mm3; Basophils % (Manual) 0 % (0.0-1.8); Eosinophils % (Manual) 0 % (0.0-4.3); Total Cells Counted 100; Toxic Granulation 3+
[2019-08-05 11:02] LABS: Platelet Estimate Consistent w Auto
--- NOTE | 2019-08-05 13:59 | Gastroenterology Progress Note ---
Assessment and Plan - Patient Problems (1) Crohn's colitis Current Visit: Yes Status: Acute Plan to address problem: - New dx, and only treatment is prednisone so far. - Severe anemia, and patient rec'd 2 units PRBC for bleeding 4 days ago. - Will give IV/PO abx rather than steroids in attempt to control. - Consider trial of budesonide as an outpatient while waiting for Humira approval (initiated by our office). - Check PPD since patient had indeterminate QuantiferonGOLD in our office. (2) Acute pancreatitis Current Visit: Yes Status: Acute Plan to address problem: - No typical risk factors, but can be a side effect of prednisone. - Improved labs after d/c prednisone; some of inflammatory changes on CT may be from severe colitis. - Will advance to regular diet and observe. Subjective Date of service: 08/05/19 Principal diagnosis: IBD/Pancreatitis Interval history: The patient was able to tolerate some fluids, and her abdominal pain is slightly better. She continues to have diarrhea streaked with blood. She has no F/C. Objective - Constitutional Vitals: Temp Pulse Resp BP Pulse Ox 99.0 F 94 H 18 104/68 100 08/05/19 04:41 08/05/19 04:41 08/05/19 04:41 08/05/19 04:41 08/05/19 09:52 General appearance: no acute distress - Respiratory Respiratory effort: normal Respiratory: bilateral: CTA - Cardiovascular Rhythm: regular Heart Sounds: Present: S1 & S2 - Gastrointestinal General gastrointestinal: Present: soft, tender (Mild tenderness), non-distended - Labs CBC & Chem 7: 08/05/19 04:53 08/05/19 04:53 Labs: Laboratory Results - last 24 hr 08/05/19 08/05/19 08/05/19 04:53 04:53 04:53 WBC 11.6 H RBC 2.91 L Hgb 8.2 L Hct 25.7 L MCV 88 MCH 28 MCHC 32 RDW 16.7 H Plt Count 528 H Add Manual Diff Complete Total Counted 100 Seg Neuts % (Manual) 90.0 H Band Neutrophils % 5.0 Lymphocytes % (Manual) 2.0 L Reactive Lymphs % (Man) 1.0 Monocytes % (Manual) 2.0 Eosinophils % (Manual) 0 Basophils % (Manual) 0 Metamyelocytes % 0 Myelocytes % 0 Promyelocytes % 0 Blast Cells % 0 Nucleated RBC % Not Reportable Seg Neutrophils # Man 10.4 H Band Neutrophils # 0.6 Lymphocytes # (Manual) 0.2 L Abs React Lymphs (Man) 0.1 Monocytes # (Manual) 0.2 Eosinophils # (Manual) 0.0 Basophils # (Manual) 0.0 Metamyelocytes # 0.0 Myelocytes # 0.0 Promyelocytes # 0.0 Blast Cells # 0.0 WBC Morphology Not Reportable Hypersegmented Neuts Not Reportable Hyposegmented Neuts Not Reportable Hypogranular Neuts Not Reportable Smudge Cells Not Reportable Toxic Granulation 3+ Toxic Vacuolation Not Reportable Dohle Bodies Not Reportable Pelger-Huet Anomaly Not Reportable Lola Rods Not Reportable Platelet Estimate Consistent w auto Clumped Platelets Not Reportable Plt Clumps, EDTA Not Reportable Large Platelets Not Reportable Giant Platelets Not Reportable Platelet Satelliting Not Reportable Plt Morphology Comment Not Reportable RBC Morphology Not Reportable Dimorphic RBCs Not Reportable Polychromasia Not Reportable Hypochromasia Not Reportable Poikilocytosis Not Reportable Anisocytosis 1+ Microcytosis Not Reportable Macrocytosis Not Reportable Spherocytes Not Reportable Pappenheimer Bodies Not Reportable Sickle Cells Not Reportable Target Cells Not Reportable Tear Drop Cells Not Reportable Ovalocytes Not Reportable Helmet Cells Not Reportable [place] Bodies Not Reportable [place] Rings Not Reportable Nicolas Cells Not Reportable Bite Cells Not Reportable Crenated Cell Not Reportable Elliptocytes Not Reportable Acanthocytes (Spur) Not Reportable Rouleaux Not Reportable Hemoglobin C Crystals Not Reportable Schistocytes Not Reportable Malaria parasites Not Reportable Samuel Bodies Not Reportable Hem Pathologist Commnt No PT 15.7 H INR 1.28 H Sodium 139 Potassium 2.8 L* Chloride 101.7 Carbon Dioxide 23 Anion Gap 17 BUN 9 Creatinine 0.3 L Estimated GFR > 60 BUN/Creatinine Ratio 30 Glucose 98 Calcium 7.8 L Lipase 08/05/19 04:53 WBC RBC Hgb Hct MCV MCH MCHC RDW Plt Count Add Manual Diff Total Counted Seg Neuts % (Manual) Band Neutrophils % Lymphocytes % (Manual) Reactive Lymphs % (Man) Monocytes % (Manual) Eosinophils % (Manual) Basophils % (Manual) Metamyelocytes % Myelocytes % Promyelocytes % Blast Cells % Nucleated RBC % Seg Neutrophils # Man Band Neutrophils # Lymphocytes # (Manual) Abs React Lymphs (Man) Monocytes # (Manual) Eosinophils # (Manual) Basophils # (Manual) Metamyelocytes # Myelocytes # Promyelocytes # Blast Cells # WBC Morphology Hypersegmented Neuts Hyposegmented Neuts Hypogranular Neuts Smudge Cells Toxic Granulation Toxic Vacuolation Dohle Bodies Pelger-Huet Anomaly Lola Rods Platelet Estimate Clumped Platelets Plt Clumps, EDTA Large Platelets Giant Platelets Platelet Satelliting Plt Morphology Comment RBC Morphology Dimorphic RBCs Polychromasia Hypochromasia Poikilocytosis Anisocytosis Microcytosis Macrocytosis Spherocytes Pappenheimer Bodies Sickle Cells Target Cells Tear Drop Cells Ovalocytes Helmet Cells [place] Bodies Mio Rings Nicolas Cells Bite Cells Crenated Cell Elliptocytes Acanthocytes (Spur) Rouleaux Hemoglobin C Crystals Schistocytes Malaria parasites Samuel Bodies Hem Pathologist Commnt PT INR Sodium Potassium Chloride Carbon Dioxide Anion Gap BUN Creatinine Estimated GFR BUN/Creatinine Ratio Glucose Calcium Lipase 147 H
[2019-08-05] MEDS ORDERED: TUBERCULIN PPD 5 TUB UNIT/0.1 ML INJ ID ONE (14:30)
[2019-08-05] MEDS: metroNIDAZOLE/NS 500 MG/100 ML 500 MG/100 ML BAG IV SCH ×2 (18:14→21:52)
[2019-08-05] MEDS: levoFLOXacin 500 MG TAB PO SCH (23:20)
[2019-08-06] MEDS: POTASSIUM CHLORIDE 10 MEQ 10 MEQ/100 ML BAG IV SCH (00:16)
[2019-08-06] MEDS: MORPHINE 2 MG/1 ML INJ IV PRN ×5 (04:34→23:54)
[2019-08-06] MEDS: ONDANSETRON 4 MG/2 ML INJ IV PRN ×3 (04:34→20:52)
[2019-08-06] MEDS: metroNIDAZOLE/NS 500 MG/100 ML 500 MG/100 ML BAG IV SCH ×3 (05:47→21:00)
[2019-08-06 06:32] LABS: Basophils % (Auto) 0.1 % (0.0-1.8); Eosinophils # (Auto) 0.1 K/mm3 (0.0-0.4); Eosinophils % (Auto) 0.9 % (0.0-4.3); Hematocrit 23.4 % (30.3-42.9); Hemoglobin 7.5 gm/dl (10.1-14.3); Lymphocytes # (Auto) 0.9 K/mm3 (1.2-5.4); Lymphocytes % (Auto) 12.1 % (13.4-35.0); Mean Corpuscular HGB Conc 32 % (30-34); Mean Corpuscular Volume 88 fl (79-97); Monocytes # (Auto) 0.5 K/mm3 (0.0-0.8); Monocytes % (Auto) 6.5 % (0.0-7.3); Platelet Count 479 K/mm3 (140-440); Red Blood Count 2.65 M/mm3 (3.65-5.03); Red Cell Distribution Width 16.9 % (13.2-15.2)
--- NOTE | 2019-08-06 07:02 | Progress Note ---
Assessment and Plan Day #2 (1) Crohn's colitis Current Visit: Yes Status: Acute Plan to address problem: - New dx,by Dr Ismael eBaulieu [facility] 2 weeks ago and only treatment is prednisone so far. - Severe anemia, and patient rec'd 2 units PRBC for bleeding 4 days ago. - Will give IV/PO abx rather than steroids in attempt to control. - Consider trial of budesonide as an outpatient while waiting for Humira approval (initiated by our office). - Check PPD since patient had indeterminate QuantiferonGOLD in GI office. (2) Acute pancreatitis Current Visit: Yes Status: Acute Plan to address problem: - No typical risk factors, but can be a side effect of prednisone. - Improved labs after d/c prednisone; some of inflammatory changes on CT may be from severe colitis. - Will advance to regular diet and observe. May discharge tomorrow if pain is better and able to tolerate clears Subjective Date of service: 08/05/19 Principal diagnosis: IBD/Pancreatitis Interval history: Abdoinal pain better but still present Admitted for Acute pancreatitis Day3 2 Objective - Constitutional Vitals: Vital Signs - 12hr 08/05/19 21:21 Temperature 98.9 F Pulse Rate 106 H Respiratory 18 Rate Blood Pressure 106/62 O2 Sat by Pulse 100 Oximetry General appearance: Present: mild distress, well-nourished - EENT Eyes: PERRL, EOM intact ENT: hearing intact, clear oral mucosa Ears: bilateral: normal - Neck Neck: supple, normal ROM - Respiratory Respiratory effort: normal Respiratory: bilateral: CTA - Breasts Breasts: normal - Cardiovascular Heart rate: 78 Rhythm: regular Heart Sounds: Present: S1 & S2. Absent: gallop, rub Extremities: pulses intact, No edema, normal color, Full ROM - Gastrointestinal General gastrointestinal: Present: soft, tender, non-distended, normal bowel sounds Localized gastrointestinal: tender: diffuse, guarding: diffuse Rectal Exam: deferred - Genitourinary Female genitourinary: normal - Integumentary Integumentary: clear, warm, dry - Musculoskeletal Musculoskeletal: 1, strength equal bilaterally - Neurologic Neurologic: moves all extremities - Psychiatric Psychiatric: memory intact, appropriate mood/affect, intact judgment & insight - Allied health notes Allied health notes reviewed: nursing, case management - Labs CBC & Chem 7: 08/06/19 06:06 08/05/19 04:53 Labs: Abnormal lab results 08/05/19 08/06/19 Range/Units 04:53 06:06 RBC 2.65 L (3.65-5.03) M/mm3 Hgb 7.5 L (10.1-14.3) gm/dl Hct 23.4 L (30.3-42.9) % RDW 16.9 H (13.2-15.2) % Plt Count 479 H (140-440) K/mm3 Lymph % (Auto) 12.1 L (13.4-35.0) % Lymph # 0.9 L (1.2-5.4) K/mm3 Seg Neutrophils % 80.4 H (40.0-70.0) % Seg Neuts % (Manual) 90.0 H (40.0-70.0) % Lymphocytes % (Manual) 2.0 L (13.4-35.0) % Seg Neutrophils # Man 10.4 H (1.8-7.7) K/mm3 Lymphocytes # (Manual) 0.2 L (1.2-5.4) K/mm3
[2019-08-06 07:03] LABS: Alanine Aminotransferase 9 units/L (7-56); Albumin 2.1 g/dL (3.9-5); BUN/Creatinine Ratio 13; Blood Urea Nitrogen 4 mg/dL (7-17); Calcium 7.5 mg/dL (8.4-10.2); Hemolysis Index 3
[2019-08-06] MEDS: MULTIVITAMINS,THER W-MINERALS TAB PO SCH (09:51)
[2019-08-06] MEDS: D5W/0.9% NACL 1,000 ML IV SCH ×2 (10:15→22:48)
--- NOTE | 2019-08-06 10:57 | Progress Note ---
Assessment and Plan Assessment and plan: Crohn's colitis. New dx,by Dr Ismael Beaulieu [facility] 2 weeks ago and only treatment is prednisone so far.patient also had severe anemia and received 2 units PRBC for bleeding. Continue antibiotics per GI recommendations. GI reports patient is awaiting Humira approval. Follow-up PPD since patient had indeterminate QuantiferonGOLD in GI office. Acute pancreatitis. Etiology may be side effect from prednisone. Inflammatory changes on CT may be from colitis. Continue diet as tolerated. Consider DC home if okay with GI. History Interval history: No new issues overnight. Hospitalist Physical - Constitutional Vitals: Temp Pulse Resp BP Pulse Ox 98.4 F 108 H 18 126/79 99 08/06/19 04:48 08/06/19 04:48 08/06/19 04:48 08/06/19 04:48 08/06/19 04:48 General appearance: Present: mild distress, well-nourished - EENT Eyes: Present: PERRL, EOM intact ENT: hearing intact, clear oral mucosa, dentition normal - Neck Neck: Present: supple, normal ROM - Respiratory Respiratory effort: normal Respiratory: bilateral: CTA - Cardiovascular Rhythm: regular Heart Sounds: Present: S1 & S2. Absent: gallop, rub - Extremities Extremities: no ischemia, No edema, Full ROM - Abdominal General gastrointestinal: soft, non-tender, non-distended, normal bowel sounds - Integumentary Integumentary: Present: clear, warm, dry - Neurologic Neurologic: CNII-XII intact, moves all extremities Results - Labs CBC & Chem 7: 08/06/19 06:06 08/06/19 06:06 Labs: Laboratory Last Values WBC 7.5 K/mm3 (4.5-11.0) 08/06/19 06:06 RBC 2.65 M/mm3 (3.65-5.03) L 08/06/19 06:06 Hgb 7.5 gm/dl (10.1-14.3) L 08/06/19 06:06 Hct 23.4 % (30.3-42.9) L 08/06/19 06:06 MCV 88 fl (79-97) 08/06/19 06:06 MCH 29 pg (28-32) 08/06/19 06:06 MCHC 32 % (30-34) 08/06/19 06:06 RDW 16.9 % (13.2-15.2) H 08/06/19 06:06 Plt Count 479 K/mm3 (140-440) H 08/06/19 06:06 Lymph % (Auto) 12.1 % (13.4-35.0) L 08/06/19 06:06 Mcdonald % (Auto) 6.5 % (0.0-7.3) 08/06/19 06:06 Eos % (Auto) 0.9 % (0.0-4.3) 08/06/19 06:06 Baso % (Auto) 0.1 % (0.0-1.8) 08/06/19 06:06 Lymph # 0.9 K/mm3 (1.2-5.4) L 08/06/19 06:06 Mcdonald # 0.5 K/mm3 (0.0-0.8) 08/06/19 06:06 Eos # 0.1 K/mm3 (0.0-0.4) 08/06/19 06:06 Baso # 0.0 K/mm3 (0.0-0.1) 08/06/19 06:06 Add Manual Diff Complete 08/05/19 04:53 Total Counted 100 08/05/19 04:53 Seg Neutrophils % 80.4 % (40.0-70.0) H 08/06/19 06:06 Seg Neuts % (Manual) 90.0 % (40.0-70.0) H 08/05/19 04:53 Band Neutrophils % 5.0 % 08/05/19 04:53 Lymphocytes % (Manual) 2.0 % (13.4-35.0) L 08/05/19 04:53 Reactive Lymphs % (Man) 1.0 % 08/05/19 04:53 Monocytes % (Manual) 2.0 % (0.0-7.3) 08/05/19 04:53 Eosinophils % (Manual) 0 % (0.0-4.3) 08/05/19 04:53 Basophils % (Manual) 0 % (0.0-1.8) 08/05/19 04:53 Metamyelocytes % 0 % 08/05/19 04:53 Myelocytes % 0 % 08/05/19 04:53 Promyelocytes % 0 % 08/05/19 04:53 Blast Cells % 0 % 08/05/19 04:53 Nucleated RBC % Not Reportable 08/05/19 04:53 Seg Neutrophils # 6.0 K/mm3 (1.8-7.7) 08/06/19 06:06 Seg Neutrophils # Man 10.4 K/mm3 (1.8-7.7) H 08/05/19 04:53 Band Neutrophils # 0.6 K/mm3 08/05/19 04:53 Lymphocytes # (Manual) 0.2 K/mm3 (1.2-5.4) L 08/05/19 04:53 Abs React Lymphs (Man) 0.1 K/mm3 08/05/19 04:53 Monocytes # (Manual) 0.2 K/mm3 (0.0-0.8) 08/05/19 04:53 Eosinophils # (Manual) 0.0 K/mm3 (0.0-0.4) 08/05/19 04:53 Basophils # (Manual) 0.0 K/mm3 (0.0-0.1) 08/05/19 04:53 Metamyelocytes # 0.0 K/mm3 08/05/19 04:53 Myelocytes # 0.0 K/mm3 08/05/19 04:53 Promyelocytes # 0.0 K/mm3 08/05/19 04:53 Blast Cells # 0.0 K/mm3 08/05/19 04:53 WBC Morphology Not Reportable 08/05/19 04:53 Hypersegmented Neuts Not Reportable 08/05/19 04:53 Hyposegmented Neuts Not Reportable 08/05/19 04:53 Hypogranular Neuts Not Reportable 08/05/19 04:53 Smudge Cells Not Reportable 08/05/19 04:53 Toxic Granulation 3+ 08/05/19 04:53 Toxic Vacuolation Not Reportable 08/05/19 04:53 Dohle Bodies Not Reportable 08/05/19 04:53 Pelger-Huet Anomaly Not Reportable 08/05/19 04:53 Lola Rods Not Reportable 08/05/19 04:53 Platelet Estimate Consistent w auto 08/05/19 04:53 Clumped Platelets Not Reportable 08/05/19 04:53 Plt Clumps, EDTA Not Reportable 08/05/19 04:53 Large Platelets Not Reportable 08/05/19 04:53 Giant Platelets Not Reportable 08/05/19 04:53 Platelet Satelliting Not Reportable 08/05/19 04:53 Plt Morphology Comment Not Reportable 08/05/19 04:53 RBC Morphology Not Reportable 08/05/19 04:53 Dimorphic RBCs Not Reportable 08/05/19 04:53 Polychromasia Not Reportable 08/05/19 04:53 Hypochromasia Not Reportable 08/05/19 04:53 Poikilocytosis Not Reportable 08/05/19 04:53 Anisocytosis 1+ 08/05/19 04:53 Microcytosis Not Reportable 08/05/19 04:53 Macrocytosis Not Reportable 08/05/19 04:53 Spherocytes Not Reportable 08/05/19 04:53 Pappenheimer Bodies Not Reportable 08/05/19 04:53 Sickle Cells Not Reportable 08/05/19 04:53 Target Cells Not Reportable 08/05/19 04:53 Tear Drop Cells Not Reportable 08/05/19 04:53 Ovalocytes Not Reportable 08/05/19 04:53 Helmet Cells Not Reportable 08/05/19 04:53 [place] Bodies Not Reportable 08/05/19 04:53 [place] Rings Not Reportable 08/05/19 04:53 [place]y Cells Not Reportable 08/05/19 04:53 Bite Cells Not Reportable 08/05/19 04:53 Crenated Cell Not Reportable 08/05/19 04:53 Elliptocytes Not Reportable 08/05/19 04:53 Acanthocytes (Spur) Not Reportable 08/05/19 04:53 Rouleaux Not Reportable 08/05/19 04:53 Hemoglobin C Crystals Not Reportable 08/05/19 04:53 Schistocytes Not Reportable 08/05/19 04:53 Malaria parasites Not Reportable 08/05/19 04:53 Samuel Bodies Not Reportable 08/05/19 04:53 Hem Pathologist Commnt No 08/05/19 04:53 PT 15.7 Sec. (12.2-14.9) H 08/05/19 04:53 INR 1.28 (0.87-1.13) H 08/05/19 04:53 APTT 27.5 Sec. (24.2-36.6) 08/03/19 20:36 Sodium 138 mmol/L (137-145) 08/06/19 06:06 Potassium 2.9 mmol/L (3.6-5.0) L* 08/06/19 06:06 Chloride 101.5 mmol/L (98-107) 08/06/19 06:06 Carbon Dioxide 21 mmol/L (22-30) L 08/06/19 06:06 Anion Gap 18 mmol/L 08/06/19 06:06 BUN 4 mg/dL (7-17) L 08/06/19 06:06 Creatinine 0.3 mg/dL (0.7-1.2) L 08/06/19 06:06 Estimated GFR > 60 ml/min 08/06/19 06:06 BUN/Creatinine Ratio 13 % 08/06/19 06:06 Glucose 84 mg/dL (65-100) 08/06/19 06:06 Calcium 7.5 mg/dL (8.4-10.2) L 08/06/19 06:06 Total Bilirubin 0.40 mg/dL (0.1-1.2) 08/06/19 06:06 AST 10 units/L (5-40) 08/06/19 06:06 ALT 9 units/L (7-56) 08/06/19 06:06 Alkaline Phosphatase 48 units/L (35-129) 08/06/19 06:06 Total Protein 5.6 g/dL (6.3-8.2) L 08/06/19 06:06 Albumin 2.1 g/dL (3.9-5) L 08/06/19 06:06 Albumin/Globulin Ratio 0.6 % 08/06/19 06:06 Lipase 147 units/L (13-60) H 08/05/19 04:53 HCG, Qual Negative (Negative) 08/03/19 20:36 Urine Color Yellow (Yellow) 08/03/19 Unknown Urine Turbidity Clear (Clear) 08/03/19 Unknown Urine pH 5.0 (5.0-7.0) 08/03/19 Unknown Ur Specific [place] 1.046 (1.003-1.030) H 08/03/19 Unknown Urine Protein <15 mg/dl mg/dL (Negative) 08/03/19 Unknown Urine Glucose (UA) Neg mg/dL (Negative) 08/03/19 Unknown Urine Ketones Neg mg/dL (Negative) 08/03/19 Unknown Urine Blood Neg (Negative) 08/03/19 Unknown Urine Nitrite Neg (Negative) 08/03/19 Unknown Urine Bilirubin Neg (Negative) 08/03/19 Unknown Urine Urobilinogen < 2.0 mg/dL (<2.0) 08/03/19 Unknown Ur Leukocyte Esterase Neg (Negative) 08/03/19 Unknown Urine WBC (Auto) 10.0 /HPF (0.0-6.0) H 08/03/19 Unknown Urine RBC (Auto) 3.0 /HPF (0.0-6.0) 08/03/19 Unknown U Epithel Cells (Auto) 2.0 /HPF (0-13.0) 08/03/19 Unknown Urine Mucus Few /HPF 08/03/19 Unknown Blood Type O POSITIVE 08/03/19 20:36 Antibody Screen Negative 08/03/19 20:36 Microbiology: Microbiology 08/03/19 Unknown Urine,Clean Catch Urine Culture - Preliminary Lopez/IV: Voiding Method Toilet IV Catheter Type [Left Hand] INT / Saline Lock IV Catheter Type [Right Peripheral IV Antecubital] IV Catheter Type [Left INT / Saline Lock Antecubital] Active Medications - Current Medications Current Medications: Generic Name Dose Route Start Last Admin Trade Name Freq PRN Reason Stop Dose Admin Dextrose/Sodium Chloride 1,000 mls @ 75 mls/hr 08/04/19 18:00 08/06/19 10:15 D5ns IV 75 mls/hr DIRECT ABHI Administration Metronidazole 500 mg in 100 mls @ 100 mls/hr 08/05/19 14:00 08/06/19 05:47 Flagyl 500 Mg/100 Ml IV 100 mls/hr Q8HR ABHI Administration Protocol Levofloxacin 500 mg 08/04/19 22:00 08/05/19 23:20 Levaquin PO 500 mg Q24HR@2200 ABHI Administration Morphine Sulfate 2 mg 08/04/19 20:40 08/06/19 08:38 Morphine IV 2 mg Q3H PRN Administration Pain>3 Multivitamins/Minerals 1 each 08/06/19 10:00 08/06/19 09:51 Theragran-M Tab PO 1 each QDAY ABHI Administration Ondansetron HCl 4 mg 08/04/19 00:21 08/06/19 04:34 Zofran IV 4 mg Q8H PRN Administration Nausea And Vomiting Sodium Chloride 10 ml 08/04/19 10:00 08/06/19 09:51 Sodium Chloride Flush Syringe 10 Ml IV 10 ml BID ABHI Administration Sodium Chloride 10 ml 08/04/19 00:21 Sodium Chloride Flush Syringe 10 Ml IV PRN PRN LINE FLUSH
[2019-08-06] MEDS ORDERED: POTASSIUM CHLORIDE 10 MEQ 10 MEQ/100 ML BAG IV ONE (11:18)
[2019-08-06] MEDS ORDERED: POTASSIUM CHLORIDE ER 20 MEQ TAB PO ONE (11:18)
[2019-08-06] MEDS ORDERED: POTASSIUM CHLORIDE ER 20 MEQ TAB PO NR (14:00)
--- NOTE | 2019-08-06 15:57 | Discharge Summary ---
Providers - Providers Date of Admission: 08/04/19 00:14 Date of discharge: 08/06/19 Attending physician: AUSTIN HILLIARD 08/04/19 00:21 Consult to Physician [CONS] Routine Comment: Consulting Provider: JONO WALDROP Physician Instructions: Reason For Exam: ACUTE PANCREATITIS, H/O CROHN'S DISEASE Primary care physician: [employer] Hospitalization Reason for admission: abd pain Condition: Fair Hospital course: The patient is a 29 yo female recently dx with ASCA (+) Crohns colitis. She has been approved for Humira, but has been on prednisone therapy for acute control, for the last 10 days. She came to the ER for worsening abdominal pain in the last 48 hours with N/V (now improved). She had labs and a CT that was suggestive of pancreatitis (acute, interstitial, without necrosis). She has no hx of EtOH or pancreatitis, and had no gallstones. The pt received prednisone but believed to have adverse reaction with acute pancreatitis. GI saw the patient in consultation and had improvement with abx alone. DELORES Streeter recommended d/c home with abx. Dedicated d/c time 35 min Disposition: DC- TO HOME OR SELFCARE - Discharge Diagnoses (1) Acute pancreatitis Status: Acute (2) Crohn's colitis Status: Acute Core Measure Documentation - Palliative Care Palliative Care/ Comfort Measures: Not Applicable - Core Measures Any of the following diagnoses?: none Exam - Constitutional Vitals: Temp Pulse Resp BP Pulse Ox 99.4 F 107 H 16 119/71 98 08/06/19 11:37 08/06/19 11:37 08/06/19 11:37 08/06/19 11:37 08/06/19 11:37 General appearance: Present: no acute distress, well-nourished - EENT Eyes: Present: PERRL ENT: hearing intact, clear oral mucosa - Neck Neck: Present: supple, normal ROM - Respiratory Respiratory effort: normal Respiratory: bilateral: CTA - Cardiovascular Heart Sounds: Present: S1 & S2. Absent: rub, click - Extremities Extremities: pulses symmetrical, No edema Peripheral Pulses: within normal limits - Abdominal General gastrointestinal: Present: soft, non-tender, non-distended, normal bowel sounds Female genitourinary: Present: normal - Integumentary Integumentary: Present: clear, warm, dry - Musculoskeletal Musculoskeletal: gait normal, strength equal bilaterally - Psychiatric Psychiatric: appropriate mood/affect, intact judgment & insight - Neurologic Neurologic: CNII-XII intact, moves all extremities Plan Activity: advance as tolerated Weight Bearing Status: Weight Bear as Tolerated Diet: regular Follow up with: PRIMARY CARE, [Primary Care Provider] - 3-5 Days TELMA BURLESON MD [Staff Physician] - 7 Days Prescriptions: levoFLOXacin [Levaquin TAB] 500 mg PO Q24HR@2200 #14 tablet
--- NOTE | 2019-08-06 18:14 | Gastroenterology Progress Note ---
Assessment and Plan - Patient Problems (1) Crohn's colitis Current Visit: Yes Status: Acute Plan to address problem: - New dx, and only treatment is prednisone so far. - Severe anemia, and patient rec'd 2 units PRBC for bleeding 4 days ago. - Will give IV/PO abx rather than steroids in attempt to control. - Consider trial of budesonide as an outpatient while waiting for Humira approval (initiated by our office). - [place] 08/03 [place] [facility] [place] (2) Acute pancreatitis Current Visit: Yes Status: Acute Plan to address problem: - No typical risk factors, but can be a side effect of prednisone. - Improved labs after d/c prednisone; some of inflammatory changes on CT may be from severe colitis. - Will continue regular diet and observe. Subjective Date of service: 08/06/19 Principal diagnosis: IBD/Pancreatitis Interval history: The patient had another episode of emesis after dinner, and her K is still low. She has had multiple BMs but not all are streaked with blood. She still has abdominal pain. Objective - Constitutional Vitals: Temp Pulse Resp BP Pulse Ox 99.4 F 107 H 16 119/71 98 08/06/19 11:37 08/06/19 11:37 08/06/19 11:37 08/06/19 11:37 08/06/19 11:37 General appearance: no acute distress - Respiratory Respiratory effort: normal Respiratory: bilateral: CTA - Cardiovascular Rhythm: regular Heart Sounds: Present: S1 & S2 - Gastrointestinal General gastrointestinal: Present: soft, non-tender, non-distended - Labs CBC & Chem 7: 08/06/19 06:06 08/06/19 06:06 Labs: Laboratory Results - last 24 hr 08/06/19 08/06/19 06:06 06:06 WBC 7.5 RBC 2.65 L Hgb 7.5 L Hct 23.4 L MCV 88 MCH 29 MCHC 32 RDW 16.9 H Plt Count 479 H Lymph % (Auto) 12.1 L [place] % (Auto) 6.5 Eos % (Auto) 0.9 Baso % (Auto) 0.1 Lymph # 0.9 L [place] # 0.5 Eos # 0.1 Baso # 0.0 Seg Neutrophils % 80.4 H Seg Neutrophils # 6.0 Sodium 138 Potassium 2.9 L* Chloride 101.5 Carbon Dioxide 21 L Anion Gap 18 BUN 4 L Creatinine 0.3 L Estimated GFR > 60 BUN/Creatinine Ratio 13 Glucose 84 Calcium 7.5 L Total Bilirubin 0.40 AST 10 ALT 9 Alkaline Phosphatase 48 Total Protein 5.6 L Albumin 2.1 L Albumin/Globulin Ratio 0.6
[2019-08-06] MEDS: levoFLOXacin 500 MG TAB PO SCH (21:00)
[2019-08-07] MEDS: MORPHINE 2 MG/1 ML INJ IV PRN ×2 (03:18→10:51)
[2019-08-07] MEDS: ONDANSETRON 4 MG/2 ML INJ IV PRN ×2 (03:19→11:00)
[2019-08-07] MEDS: metroNIDAZOLE/NS 500 MG/100 ML 500 MG/100 ML BAG IV SCH (05:21)
[2019-08-07 06:06] LABS: Hematocrit 23.1 % (30.3-42.9); Hemoglobin 7.5 gm/dl (10.1-14.3); Mean Corpuscular HGB Conc 32 % (30-34); Mean Corpuscular Volume 89 fl (79-97); Platelet Count 461 K/mm3 (140-440); Red Blood Count 2.61 M/mm3 (3.65-5.03); Red Cell Distribution Width 16.7 % (13.2-15.2)
[2019-08-07 06:26] LABS: BUN/Creatinine Ratio 5; Blood Urea Nitrogen 2 mg/dL (7-17); Calcium 7.5 mg/dL (8.4-10.2); Hemolysis Index 6
[2019-08-07] MEDS ORDERED: POTASSIUM CHLORIDE ER 20 MEQ TAB PO NR (09:05)
[2019-08-07] MEDS ORDERED: POTASSIUM CHLORIDE 10 MEQ 10 MEQ/100 ML BAG IV NR (09:05)
[2019-08-07] MEDS: MULTIVITAMINS,THER W-MINERALS TAB PO SCH (10:48)
[2019-08-07] MEDS: D5W/0.9% NACL 1,000 ML IV SCH (11:00)
--- NOTE | 2019-08-07 12:42 | Progress Note ---
Assessment and Plan Assessment and plan: Crohn's colitis. New dx,by Dr Ismael [facility] 2 weeks ago and only treatment is prednisone so far.patient also had severe anemia and received 2 units PRBC for bleeding. Continue antibiotics per GI recommendations. GI reports patient is awaiting Humira approval. Follow-up PPD since patient had indeterminate QuantiferonGOLD in GI office. Acute pancreatitis. Etiology may be side effect from prednisone. Inflammatory changes on CT may be from colitis. Continue diet as tolerated. Consider DC home if okay with GI. Thrush. Start Diflucan daily. Disposition. Anticipate discharge in a.m. - Patient Problems (1) Acute pancreatitis Current Visit: Yes Status: Acute (2) Crohn's colitis Current Visit: Yes Status: Acute History Interval history: No new issues overnight. Patient complains of thrush. Hospitalist Physical - Constitutional Vitals: Temp Pulse Resp BP Pulse Ox 99.0 F 93 H 18 127/84 100 08/07/19 06:03 08/07/19 06:03 08/07/19 06:03 08/07/19 06:03 08/07/19 06:03 General appearance: Present: no acute distress, well-nourished - EENT Eyes: Present: PERRL, EOM intact ENT: hearing intact, clear oral mucosa, dentition normal - Neck Neck: Present: supple, normal ROM - Respiratory Respiratory effort: normal Respiratory: bilateral: CTA - Cardiovascular Rhythm: regular Heart Sounds: Present: S1 & S2. Absent: gallop, rub - Extremities Extremities: no ischemia, No edema, Full ROM - Abdominal General gastrointestinal: soft, non-tender, non-distended, normal bowel sounds - Integumentary Integumentary: Present: clear, warm, dry - Neurologic Neurologic: CNII-XII intact, moves all extremities Results - Labs CBC & Chem 7: 08/07/19 05:44 08/07/19 05:44 Labs: Laboratory Last Values WBC 6.8 K/mm3 (4.5-11.0) 08/07/19 05:44 RBC 2.61 M/mm3 (3.65-5.03) L 08/07/19 05:44 Hgb 7.5 gm/dl (10.1-14.3) L 08/07/19 05:44 Hct 23.1 % (30.3-42.9) L 08/07/19 05:44 MCV 89 fl (79-97) 08/07/19 05:44 MCH 29 pg (28-32) 08/07/19 05:44 MCHC 32 % (30-34) 08/07/19 05:44 RDW 16.7 % (13.2-15.2) H 08/07/19 05:44 Plt Count 461 K/mm3 (140-440) H 08/07/19 05:44 Lymph % (Auto) 12.1 % (13.4-35.0) L 08/06/19 06:06 [place] % (Auto) 6.5 % (0.0-7.3) 08/06/19 06:06 Eos % (Auto) 0.9 % (0.0-4.3) 08/06/19 06:06 Baso % (Auto) 0.1 % (0.0-1.8) 08/06/19 06:06 Lymph # 0.9 K/mm3 (1.2-5.4) L 08/06/19 06:06 [place] # 0.5 K/mm3 (0.0-0.8) 08/06/19 06:06 Eos # 0.1 K/mm3 (0.0-0.4) 08/06/19 06:06 Baso # 0.0 K/mm3 (0.0-0.1) 08/06/19 06:06 Add Manual Diff Complete 08/05/19 04:53 Total Counted 100 08/05/19 04:53 Seg Neutrophils % 80.4 % (40.0-70.0) H 08/06/19 06:06 Seg Neuts % (Manual) 90.0 % (40.0-70.0) H 08/05/19 04:53 Band Neutrophils % 5.0 % 08/05/19 04:53 Lymphocytes % (Manual) 2.0 % (13.4-35.0) L 08/05/19 04:53 Reactive Lymphs % (Man) 1.0 % 08/05/19 04:53 Monocytes % (Manual) 2.0 % (0.0-7.3) 08/05/19 04:53 Eosinophils % (Manual) 0 % (0.0-4.3) 08/05/19 04:53 Basophils % (Manual) 0 % (0.0-1.8) 08/05/19 04:53 Metamyelocytes % 0 % 08/05/19 04:53 Myelocytes % 0 % 08/05/19 04:53 Promyelocytes % 0 % 08/05/19 04:53 Blast Cells % 0 % 08/05/19 04:53 Nucleated RBC % Not Reportable 08/05/19 04:53 Seg Neutrophils # 6.0 K/mm3 (1.8-7.7) 08/06/19 06:06 Seg Neutrophils # Man 10.4 K/mm3 (1.8-7.7) H 08/05/19 04:53 Band Neutrophils # 0.6 K/mm3 08/05/19 04:53 Lymphocytes # (Manual) 0.2 K/mm3 (1.2-5.4) L 08/05/19 04:53 Abs React Lymphs (Man) 0.1 K/mm3 08/05/19 04:53 Monocytes # (Manual) 0.2 K/mm3 (0.0-0.8) 08/05/19 04:53 Eosinophils # (Manual) 0.0 K/mm3 (0.0-0.4) 08/05/19 04:53 Basophils # (Manual) 0.0 K/mm3 (0.0-0.1) 08/05/19 04:53 Metamyelocytes # 0.0 K/mm3 08/05/19 04:53 Myelocytes # 0.0 K/mm3 08/05/19 04:53 Promyelocytes # 0.0 K/mm3 08/05/19 04:53 Blast Cells # 0.0 K/mm3 08/05/19 04:53 WBC Morphology Not Reportable 08/05/19 04:53 Hypersegmented Neuts Not Reportable 08/05/19 04:53 Hyposegmented Neuts Not Reportable 08/05/19 04:53 Hypogranular Neuts Not Reportable 08/05/19 04:53 Smudge Cells Not Reportable 08/05/19 04:53 Toxic Granulation 3+ 08/05/19 04:53 Toxic Vacuolation Not Reportable 08/05/19 04:53 Dohle Bodies Not Reportable 08/05/19 04:53 Pelger-Huet Anomaly Not Reportable 08/05/19 04:53 Lola Rods Not Reportable 08/05/19 04:53 Platelet Estimate Consistent w auto 08/05/19 04:53 Clumped Platelets Not Reportable 08/05/19 04:53 Plt Clumps, EDTA Not Reportable 08/05/19 04:53 Large Platelets Not Reportable 08/05/19 04:53 Giant Platelets Not Reportable 08/05/19 04:53 Platelet Satelliting Not Reportable 08/05/19 04:53 Plt Morphology Comment Not Reportable 08/05/19 04:53 RBC Morphology Not Reportable 08/05/19 04:53 Dimorphic RBCs Not Reportable 08/05/19 04:53 Polychromasia Not Reportable 08/05/19 04:53 Hypochromasia Not Reportable 08/05/19 04:53 Poikilocytosis Not Reportable 08/05/19 04:53 Anisocytosis 1+ 08/05/19 04:53 Microcytosis Not Reportable 08/05/19 04:53 Macrocytosis Not Reportable 08/05/19 04:53 Spherocytes Not Reportable 08/05/19 04:53 Pappenheimer Bodies Not Reportable 08/05/19 04:53 Sickle Cells Not Reportable 08/05/19 04:53 Target Cells Not Reportable 08/05/19 04:53 Tear Drop Cells Not Reportable 08/05/19 04:53 Ovalocytes Not Reportable 08/05/19 04:53 Helmet Cells Not Reportable 08/05/19 04:53 Winston-Misenheimer Bodies Not Reportable 08/05/19 04:53 Ventura Rings Not Reportable 08/05/19 04:53 Nicolas Cells Not Reportable 08/05/19 04:53 Bite Cells Not Reportable 08/05/19 04:53 Crenated Cell Not Reportable 08/05/19 04:53 Elliptocytes Not Reportable 08/05/19 04:53 Acanthocytes (Spur) Not Reportable 08/05/19 04:53 Rouleaux Not Reportable 08/05/19 04:53 Hemoglobin C Crystals Not Reportable 08/05/19 04:53 Schistocytes Not Reportable 08/05/19 04:53 Malaria parasites Not Reportable 08/05/19 04:53 Samuel Bodies Not Reportable 08/05/19 04:53 Hem Pathologist Commnt No 08/05/19 04:53 PT 15.7 Sec. (12.2-14.9) H 08/05/19 04:53 INR 1.28 (0.87-1.13) H 08/05/19 04:53 APTT 27.5 Sec. (24.2-36.6) 08/03/19 20:36 Sodium 137 mmol/L (137-145) 08/07/19 05:44 Potassium 3.3 mmol/L (3.6-5.0) L 08/07/19 05:44 Chloride 99.1 mmol/L (98-107) 08/07/19 05:44 Carbon Dioxide 24 mmol/L (22-30) 08/07/19 05:44 Anion Gap 17 mmol/L 08/07/19 05:44 BUN 2 mg/dL (7-17) L 08/07/19 05:44 Creatinine 0.4 mg/dL (0.7-1.2) L 08/07/19 05:44 Estimated GFR > 60 ml/min 08/07/19 05:44 BUN/Creatinine Ratio 5 % 08/07/19 05:44 Glucose 93 mg/dL (65-100) 08/07/19 05:44 Calcium 7.5 mg/dL (8.4-10.2) L 08/07/19 05:44 Total Bilirubin 0.40 mg/dL (0.1-1.2) 08/06/19 06:06 AST 10 units/L (5-40) 08/06/19 06:06 ALT 9 units/L (7-56) 08/06/19 06:06 Alkaline Phosphatase 48 units/L (35-129) 08/06/19 06:06 Total Protein 5.6 g/dL (6.3-8.2) L 08/06/19 06:06 Albumin 2.1 g/dL (3.9-5) L 08/06/19 06:06 Albumin/Globulin Ratio 0.6 % 08/06/19 06:06 Lipase 147 units/L (13-60) H 08/05/19 04:53 HCG, Qual Negative (Negative) 08/03/19 20:36 Urine Color Yellow (Yellow) 08/03/19 Unknown Urine Turbidity Clear (Clear) 08/03/19 Unknown Urine pH 5.0 (5.0-7.0) 08/03/19 Unknown Ur Specific [place] 1.046 (1.003-1.030) H 08/03/19 Unknown Urine Protein <15 mg/dl mg/dL (Negative) 08/03/19 Unknown Urine Glucose (UA) Neg mg/dL (Negative) 08/03/19 Unknown Urine Ketones Neg mg/dL (Negative) 08/03/19 Unknown Urine Blood Neg (Negative) 08/03/19 Unknown Urine Nitrite Neg (Negative) 08/03/19 Unknown Urine Bilirubin Neg (Negative) 08/03/19 Unknown Urine Urobilinogen < 2.0 mg/dL (<2.0) 08/03/19 Unknown Ur Leukocyte Esterase Neg (Negative) 08/03/19 Unknown Urine WBC (Auto) 10.0 /HPF (0.0-6.0) H 08/03/19 Unknown Urine RBC (Auto) 3.0 /HPF (0.0-6.0) 08/03/19 Unknown U Epithel Cells (Auto) 2.0 /HPF (0-13.0) 08/03/19 Unknown Urine Mucus Few /HPF 08/03/19 Unknown Blood Type O POSITIVE 08/03/19 20:36 Antibody Screen Negative 08/03/19 20:36 Lopez/IV: Voiding Method Toilet IV Catheter Type [Left Hand] INT / Saline Lock IV Catheter Type [Right Peripheral IV Antecubital] IV Catheter Type [Left INT / Saline Lock Antecubital] Active Medications - Current Medications Current Medications: Generic Name Dose Route Start Last Admin Trade Name Freq PRN Reason Stop Dose Admin Dextrose/Sodium Chloride 1,000 mls @ 75 mls/hr 08/04/19 18:00 08/07/19 11:00 D5ns IV 75 mls/hr DIRECT ABHI Administration Metronidazole 500 mg in 100 mls @ 100 mls/hr 08/05/19 14:00 08/07/19 05:21 Flagyl 500 Mg/100 Ml IV 100 mls/hr Q8HR ABHI Administration Protocol Potassium Chloride 10 meq in 100 mls @ 100 mls/hr 08/07/19 09:05 08/07/19 10:47 Kcl 10meq/100ml IV 08/07/19 13:00 100 mls/hr ONCE NR Administration Fluconazole 200 mg in 100 mls @ 100 mls/hr 08/08/19 10:00 Diflucan IV Q24HR PENDING SALE TO [facility] Protocol Levofloxacin 500 mg 08/04/19 22:00 08/06/19 21:00 Levaquin PO 500 mg Q24HR@2200 ABHI Administration Morphine Sulfate 2 mg 08/04/19 20:40 08/07/19 10:51 Morphine IV 2 mg Q3H PRN Administration Pain>3 Multivitamins/Minerals 1 each 08/06/19 10:00 08/07/19 10:48 Theragran-M Tab PO 1 each QDAY ABHI Administration Ondansetron HCl 4 mg 08/04/19 00:21 08/07/19 11:00 Zofran IV 4 mg Q8H PRN Administration Nausea And Vomiting Potassium Chloride 40 meq 08/07/19 09:05 08/07/19 10:48 K-Dur PO 08/07/19 18:00 40 meq ONCE NR Administration Sodium Chloride 10 ml 08/04/19 10:00 08/07/19 10:48 Sodium Chloride Flush Syringe 10 Ml IV 10 ml BID ABHI Administration Sodium Chloride 10 ml 08/04/19 00:21 Sodium Chloride Flush Syringe 10 Ml IV PRN PRN LINE FLUSH
[2019-08-07] MEDS ORDERED: levoFLOXacin 500 MG TAB PO SCH (16:00)
[2019-08-07] MEDS: FLUCONAZOLE 200 MG TAB PO SCH (16:00)
--- NOTE | 2019-08-07 18:36 | Gastroenterology Progress Note ---
Assessment and Plan - Patient Problems (1) Crohn's colitis Current Visit: Yes Status: Acute Plan to address problem: - New dx, and only treatment is prednisone so far. - Severe anemia, and patient rec'd 2 units PRBC for bleeding 6 days ago. - Will give IV/PO abx rather than steroids in attempt to control. - Consider trial of budesonide as an outpatient while waiting for Humira approval (initiated by our office). - PPD negative on 08/03 ([place] [facility] [place] - OK to d/c home per our service. (2) Acute pancreatitis Current Visit: Yes Status: Acute Plan to address problem: - No typical risk factors, but can be a side effect of prednisone. - Improved labs after d/c prednisone; some of inflammatory changes on CT may be from severe colitis. - Will continue regular diet and observe. Subjective Date of service: 08/07/19 Principal diagnosis: IBD/Pancreatitis Interval history: The patient's potassium has improved, but she continues to have diarrhea with some nausea. She has no CP or SOB. She has little witnessed vomiting per the nursing staff. She still has streaks of blood with the BMs. Objective - Constitutional Vitals: Temp Pulse Resp BP Pulse Ox 98.3 F 94 H 20 120/79 100 08/07/19 11:41 08/07/19 11:41 08/07/19 11:41 08/07/19 11:41 08/07/19 11:41 General appearance: mild distress - Respiratory Respiratory effort: normal Respiratory: bilateral: CTA - Cardiovascular Rhythm: regular Heart Sounds: Present: S1 & S2 - Gastrointestinal General gastrointestinal: Present: soft, non-tender, non-distended - Labs CBC & Chem 7: 08/07/19 05:44 08/07/19 05:44 Labs: Laboratory Results - last 24 hr 08/07/19 08/07/19 05:44 05:44 WBC 6.8 RBC 2.61 L Hgb 7.5 L Hct 23.1 L MCV 89 MCH 29 MCHC 32 RDW 16.7 H Plt Count 461 H Sodium 137 Potassium 3.3 L Chloride 99.1 Carbon Dioxide 24 Anion Gap 17 BUN 2 L Creatinine 0.4 L Estimated GFR > 60 BUN/Creatinine Ratio 5 Glucose 93 Calcium 7.5 L
[2019-08-07] MEDS ORDERED: ONDANSETRON 4 MG ODT TAB PO PRN (19:00)
[2019-08-07] MEDS ORDERED: metroNIDAZOLE 500 MG TAB PO SCH (22:00)
[2019-08-07] MEDS: oxyCODONE /ACETAMINOPHEN 5-325MG TAB PO PRN (22:00)
[2019-08-08] MEDS ORDERED: PROMETHAZINE 25 MG RECT SUPP PR ONE (00:23)
[2019-08-08] MEDS ORDERED: ACETAMINOPHEN 650 MG RECT SUPP PR ONE (00:24)
[2019-08-08] MEDS ORDERED: FLUCONAZOLE 200 MG 200 MG/100 ML BAG IV SCH (10:00)
--- NOTE | 2019-08-08 10:12 | Discharge Summary ---
Providers - Providers Date of Admission: 08/04/19 00:14 Date of discharge: 08/08/19 Attending physician: AUSTIN HILLIARD 08/04/19 00:21 Consult to Physician [CONS] Routine Comment: Consulting Provider: JONO WALDROP Physician Instructions: Reason For Exam: ACUTE PANCREATITIS, H/O CROHN'S DISEASE Primary care physician: MICA WASHER GLUER Hospitalization Reason for admission: abd pain Condition: Fair Hospital course: The patient is a 29 yo female recently dx with ASCA (+) Crohns colitis. She has been approved for Humira, but has been on prednisone therapy for acute control, for the last 10 days. She came to the ER for worsening abdominal pain in the last 48 hours with N/V (now improved). She had labs and a CT that was suggestive of pancreatitis (acute, interstitial, without necrosis). She has no hx of EtOH or pancreatitis, and had no gallstones. The pt received prednisone but believed to have adverse reaction with acute pancreatitis. GI saw the patient in consultation and had improvement with abx alone. Therefore, GI recommended d/c home with abx. Patient however still complained of nausea and vomiting and was monitored for 48 hours since discharge clearance. Nausea, vomiting and abdominal pain resolved. Patient also had other complication with thrush and was treated with Diflucan. Patient will be discharged home. Dedicated d/c time 35 min Disposition: DC-01 TO HOME OR SELFCARE - Discharge Diagnoses (1) Acute pancreatitis Status: Acute (2) Crohn's colitis Status: Acute Core Measure Documentation - Palliative Care Palliative Care/ Comfort Measures: Not Applicable - Core Measures Any of the following diagnoses?: none Exam - Constitutional Vitals: Temp Pulse Resp BP Pulse Ox 97.5 F L 91 H 16 112/63 100 08/08/19 05:58 08/08/19 05:58 08/08/19 05:58 08/08/19 05:58 08/08/19 05:58 General appearance: Present: no acute distress, well-nourished - EENT Eyes: Present: PERRL ENT: hearing intact, clear oral mucosa - Neck Neck: Present: supple, normal ROM - Respiratory Respiratory effort: normal Respiratory: bilateral: CTA - Cardiovascular Heart Sounds: Present: S1 & S2. Absent: rub, click - Extremities Extremities: pulses symmetrical, No edema Peripheral Pulses: within normal limits - Abdominal General gastrointestinal: Present: soft, non-tender, non-distended, normal bowel sounds Female genitourinary: Present: normal - Integumentary Integumentary: Present: clear, warm, dry - Musculoskeletal Musculoskeletal: gait normal, strength equal bilaterally - Psychiatric Psychiatric: appropriate mood/affect, intact judgment & insight - Neurologic Neurologic: CNII-XII intact, moves all extremities Plan Activity: advance as tolerated Weight Bearing Status: Weight Bear as Tolerated Follow up with: TELMA BURLESON MD [Staff Physician] - 7 Days PRIMARY CARE, [Primary Care Provider] - 3-5 Days Prescriptions: metroNIDAZOLE [Flagyl TAB] 500 mg PO Q8HR #42 tablet levoFLOXacin [Levaquin TAB] 500 mg PO Q24HR@2200 #14 tablet levoFLOXacin [Levaquin TAB] 500 mg PO Q24H #14 tablet oxyCODONE /ACETAMINOPHEN [Percocet 5/325 mg] 1 tab PO Q6H PRN #10 tablet PRN Reason: Pain, Moderate (4-6)
[2019-08-08] MEDS: oxyCODONE /ACETAMINOPHEN 5-325MG TAB PO PRN (11:18)
[2019-08-08] MEDS: MULTIVITAMINS,THER W-MINERALS TAB PO SCH (11:22)
[2019-08-08] MEDS: FLUCONAZOLE 200 MG TAB PO SCH (11:24)
[2019-08-08 13:06] VITALS: BP 107/73
== END 2019-08-08 15:33 | disposition home or self-care (01) | DRG 385 ==
LOC: ED 20:08 → IMCU 08-04 00:14
PROVIDERS: ADMIT Internal Medicine Geriatric Medicine; ATTEND Hospitalist
DX: K50.90 Crohn's disease, unspecified, without complications (principal); K85.90 Acute pancreatitis without necrosis or infection, unspecified; R65.10 Systemic inflammatory response syndrome (SIRS) of non-infectious origin without acute organ dysfunction; D50.0 Iron deficiency anemia secondary to blood loss (chronic); E87.6 Hypokalemia; K52.9 Noninfective gastroenteritis and colitis, unspecified; T38.0X5A Adverse effect of glucocorticoids and synthetic analogues, initial encounter; Y92.89 Other specified places as the place of occurrence of the external cause
CPT/HCPCS: 36415; 71045; 74022; 74177; 74220; 80048; 80053; 81001; 82164; 82962; 83690; 83735; 84703; 85007; 85014; 85018; 85025; 85027; 85610; 85730; 86850; 86900; 86901; 86920; 87040; 87086; 87116; 87641; G0378; J0610; J1100; J1170; J1200; J1450; J1956; J2270; J2405; J2920; J2930; J3010; J3475; J3480; J7030; J7040; J7042; J7512; P9016; Q0162; Q0169; Q9967